=== PATIENT | female | born 1960 | race Caucasian/White ===

== ENCOUNTER → 2017-05-01 16:57 | Outpatient (CLI) | payer OTHER, SELFPAY ==
[2017-05-01 17:58] LABS: Thyroid Stim Hormone (TSH) 1.98 uIU/mL (0.358-3.74)
== END ==
PROVIDERS: Family Provider Family Medicine; PCP Family Medicine; Visit Provider Family Medicine
DX: F32.9 Major depressive disorder, single episode, unspecified (principal)
CPT/HCPCS: 36415; 84443

== ENCOUNTER → 2017-11-01 09:45 | Outpatient (CLI) | payer OTHER, SELFPAY ==
[2017-11-06 15:11] LABS: HPV Reflexed? NOT INDICATED
== END ==
PROVIDERS: Family Provider Family Medicine; PCP Family Medicine; Visit Provider Family Medicine
DX: Z01.419 Encounter for gynecological examination (general) (routine) without abnormal findings (principal)
CPT/HCPCS: 88175; G0145

== ENCOUNTER → 2017-12-30 19:45 | Outpatient (CLI) | payer OTHER, SELFPAY ==
--- NOTE | 2017-12-30 | CYSPIN_PTH ---
PATIENT: ROBIN GONZALEZ [facility] U#:[id number] AGE/SX: 64/F ROOM: RE12/30/[address]: Dr. Alexander Curran MD : 1960 BED: DIS: SPEC #: [id number] RECD: 12/31/17 10:52 STATUS: CARLOS IBETH #: [id number] ELIZABETH: 12/30/17 00:[address]: Alexander Curran DEPT: CYTOLOGY RECD BY: Jamison Pugh ENTERED: 12/31/17 10:53 SP TYPE: CYSPIN FL OTHR DR: Dr. David Phelps MD Tissues: Urine Procedures: Pap Stain (control) Special Stain Group II Cytospin Fluid HEADER OPERATION: Not noted PRE-OP DIAGNOSIS: Hematuria TISSUE SUBMITTED: Urine for cytology DIAGNOSIS CYTOLOGY Urine for cytology (cytospin): Mild atypical urothelial cells noted with degenerative changes. SJ:eusebia 01/01/18 CYTOLOGY STUDY Slides are reviewed. CYTOLOGY GROSS Received is 60 ml of light yellow clear fluid labeled with the patient's name and and designated per the requisition as urine. Submitted for cytology preparation. / 12/31/17 TC:5 CPT: 74925
[2017-12-30 19:47] LABS: Cytology, Body Fluid / CSF SEE PATHOLOGY REPORT
== END ==
PROVIDERS: Family Provider Family Medicine; PCP Family Medicine; Referring Provider Urology; Visit Provider Urology
DX: R31.9 Hematuria, unspecified (principal)
CPT/HCPCS: 88108; 88313

== ENCOUNTER → 2018-01-02 09:19 | Outpatient (CLI) | payer OTHER, SELFPAY ==
--- NOTE | 2018-01-02 09:29 | US_ITS ---
STUDY: RENAL ULTRASOUND - COMPLETE REASON FOR EXAM: Female, 57 years old. Microscopic hematuria TECHNIQUE: Ultrasound evaluation of the kidneys was performed with real-time and static العلي-scale imaging. COMPARISON: None. FINDINGS: RIGHT KIDNEY: Normal location of the right kidney, which is normal in size. The right kidney measures 10.0 x 5.4 x 4.5 cm. There is a normal cortex of the right kidney. The renal cortex measures 1.3 cm. There is no right renal mass or cyst. Nonshadowing echogenic foci may be related to vascular calcifications. There are no right renal calculi. There is no right hydronephrosis. DISTAL RIGHT URETER: There is non-visualization of the distal right ureter. There is a visualized right ureteral jet. LEFT KIDNEY: Normal location of the left kidney, which is normal in size. The left kidney measures 10.5 x 4.2 x 4.7 cm. There is a normal cortex of the left kidney. The renal cortex measures 1.6 cm. There is no left renal mass or cyst. Nonshadowing echogenic foci may be related to vascular calcifications. There are no left renal calculi. There is no left hydronephrosis. DISTAL LEFT URETER: There is non-visualization of the distal left ureter. BLADDER: The distended urinary bladder has a volume of 839 ml. The post void urinary bladder has a volume of 27 ml. There is a normal wall thickness of the distended urinary bladder. There is no demonstrated mass within the urinary bladder. There are no demonstrated bladder calculi. US/Kidney and Bladder IMPRESSION: Nonechogenic foci may be vascular calcifications of the kidneys. Post void residual in the urinary bladder. Electronically Signed: Mike Brownlee DO at 23:58 EDT Tel [phone], Service support ,
== END ==
PROVIDERS: Family Provider Family Medicine; PCP Family Medicine; Referring Provider Urology; Visit Provider Urology
DX: R31.29 Other microscopic hematuria (principal)
CPT/HCPCS: 76770

== ENCOUNTER → 2018-06-16 | Outpatient (CLI) | payer OTHER, SELFPAY ==
[2017-11-29 11:29] VITALS: BMI 24.5
--- NOTE | 2018-06-16 17:01 | RAD_ITS ---
STUDY: X-RAY LEFT FOOT, GREAT TOE REASON FOR EXAM: Female, 57 years old. Pain and swelling TECHNIQUE: 3 view(s) of the toe were obtained. COMPARISON: None. FINDINGS: Normal visualized metatarsus. Normal metatarsophalangeal (M.T.P) joint. Normal interphalangeal joints. Normal phalanges and interphalangeal joints. The soft tissue structures are unremarkable. RAD/Toe(s) Min 2 Views IMPRESSION: Normal x-ray of the toe. Electronically Signed: Derick Werner MD at 19:19 EDT , Service support ,
== END | disposition home or self-care (01) ==
LOC: MTRAD 16:59
PROVIDERS: Family Provider Family Medicine; PCP Family Medicine; Referring Provider Family Medicine; Visit Provider Family Medicine
DX: S99.922A Unspecified injury of left foot, initial encounter (principal)
CPT/HCPCS: 73660

== ENCOUNTER → 2018-06-17 | Outpatient (CLI) | payer OTHER, SELFPAY ==
[2017-11-29 11:29] VITALS: BMI 24.5
--- NOTE | 2018-06-17 15:30 | RAD_ITS ---
STUDY: X-RAY - LEFT HAND REASON FOR EXAM: Female, 57 years old. Dorsal swelling TECHNIQUE: 3 view(s) of the hand. COMPARISON: None. FINDINGS: Normal radiocarpal articulation. Normal distal radioulnar joint. Normal visualized carpal bones. Normal carpal articulations Normal carpometacarpal articulation of the thumb. Normal second through fifth carpometacarpal joints. Normal metacarpi. Normal metacarpophalangeal joint of the thumb. Normal interphalangeal joint of the thumb. Normal proximal and distal phalanges of the thumb. Normal metacarpophalangeal joints of the second through fifth fingers. Normal proximal and distal interphalangeal joints of the second through fifth fingers. Normal phalanges of the second through fifth fingers. Soft tissue swelling over the dorsum of the metacarpals RAD/Hand Min 3 Views IMPRESSION: No demonstrated fracture or suspicious osseous lesion Dorsal soft tissue swelling Electronically Signed: Derick Werner MD at 17:25 EDT , Service support ,
== END | disposition home or self-care (01) ==
LOC: MTRAD 15:29
PROVIDERS: Family Provider Family Medicine; PCP Family Medicine; Referring Provider Family Medicine; Visit Provider Family Medicine
DX: S69.92XA Unspecified injury of left wrist, hand and finger(s), initial encounter (principal)
CPT/HCPCS: 73130

== ENCOUNTER → 2018-11-12 | Outpatient (CLI) | payer OTHER, SELFPAY ==
[2017-11-29 11:29] VITALS: BMI 24.5
[2018-11-12 11:28] LABS: Anion Gap 4 (5-15); BUN 10 mg/dL (7-18); BUN/Creat Ratio 13.6 RATIO (10-20); Chloride 107 mmol/L (98-107); Cholesterol 235 mg/dL (200); Creatinine, Serum 0.74 mg/dL (0.55-1.02); EST Glomerular Filtration Rate 87 mL/min (>60); Est Glom Filt Rate - Afr Amer 105 mL/min (>60); Glucose 80 mg/dL (74-106); High Density Lipoprotein 110 mg/dL; Phenytoin (Dilantin) Level 11.6 mL (10.0-20.0); Potassium 3.8 mmol/L (3.5-5.1); Sodium Level 142 mmol/L (136-145); Triglycerides 76 mg/dL; Very Low Density Lipoprotein 15 mg/dL (5-40)
[2018-11-12 11:34] LABS: Vitamin D,25 Hydroxy 27.4 ng/mL (29.95-100.01)
== END | disposition home or self-care (01) ==
LOC: LAB 09:44
PROVIDERS: Family Provider Family Medicine; PCP Family Medicine; Referring Provider Family Medicine; Visit Provider Family Medicine
DX: Z00.00 Encounter for general adult medical examination without abnormal findings (principal); G40.909 Epilepsy, unspecified, not intractable, without status epilepticus
CPT/HCPCS: 36415; 80048; 80061; 80185; 82306

== ENCOUNTER → 2019-11-24 | Outpatient (CLI) | payer OTHER, SELFPAY ==
[2017-11-29 11:29] VITALS: BMI 24.5
[2019-11-24 12:37] LABS: Phenytoin (Dilantin) Level 11.6 mL (10.0-20.0)
== END | disposition home or self-care (01) ==
LOC: MFPLAB 10:45
PROVIDERS: PCP Family Medicine; Referring Provider Family Medicine; Visit Provider Registered Nurse
DX: Z00.00 Encounter for general adult medical examination without abnormal findings (principal)
CPT/HCPCS: 36415; 80185

== ENCOUNTER 2020-03-30 15:27 | Emergency (ER) | payer OTHER, SELFPAY ==
[2020-03-30 15:28] VITALS: BP 124/73; PULSE 97; RESP 18; TEMP 36.8; O2SAT 99; BMI 24.3
--- NOTE | 2020-03-30 16:10 | ED.VIS.GEN ---
History of Present Illness Chief Complaint: Seizure Informant: Patient Narrative: Patient is a 59-year-old female who presents to the emergency department for seizures. She does have a history of seizure disorder and is on Dilantin. She did miss a dose last night. She did take her dose this morning. She did get her second dose of the Moderna vaccine yesterday. She did fine with her initial dose few weeks prior. Nuys any recent illnesses. She does have a mild headache and some nausea now but this is typical post seizure for her. Her last seizure was over 9 years ago. She denies any injury except she did bite her bottom lip. No active bleeding. She denies any fevers or chills. No weakness or loss of sensation in any extremity. No urinary symptoms. Past Medical History - Allergies and Home Meds Allergies/Adverse Reactions: Allergies No Known Allergies Allergy (Verified 11/29/17 11:31) Primary Care Physician: David Phelps MD [Primary Care Provider] - 3-5 Days Prior records reviewed: Yes Past Medical History: - - Seizure disorder Smoking Status: Never smoker Review of Systems All systems negative except as indicated General: Denies: Chills, Fever, Sweats Eyes: Denies: Visual changes - bilaterally, Diplopia ENT: Denies: Rhinorrhea, Sore throat Cardiovascular: Denies: Chest pain, Palpitations Respiratory: Denies: Dyspnea, Cough, Dyspnea on exertion Gastrointestinal: Reports: Nausea. Denies: Abdominal pain, Vomiting, Diarrhea Genitourinary: Denies: Dysuria, Hematuria, Frequency Musculoskeletal: Denies: Back pain, Extremity Pain Skin: Denies: Rash, Wounds Neurological: Reports: Headache. Denies: Weakness, Numbness Physical Exam Vital Signs/Narrative: Vital Signs Temp Pulse Resp BP Pulse Ox 03/30/20 15:28 98.3 F 97 18 124/73 H 99 Inital Vital Signs reviewed: Yes General: Well nourished, Well developed, No Acute Distress Head: Normocephalic, Atraumatic Eyes: Perrl, EOMI ENT: Moist mucous membranes, No rhinorrhea, - - Mild swelling to lower lip. Neck: Supple, Nontender Cardiovascular: Regular rate, Regular rhythm, No murmurs Respiratory: No distress, CTA bilaterally, Chest nontender Abdomen: Soft, Nontender, Nondistended, Normal bowel sounds Back: Nontender, Normal Inspection. Negative for: Spinal tenderness Extremities: Nontender, No edema Skin: Normal color, No rash Neurological: Alert, Oriented x3, Cranial nerves II-XII grossly intact, Normal Strength, Normal Sensation Psychological: Normal affect, Normal Mood Diagnostic/Tx/Re-eval - Medical Decision Making Patient presents to the emergency department for seizures. She is not sure how long each one lasted for and it was witnessed by her . She did miss her dose of antiepileptic medication yesterday but did take it today. We will check basic lab work at this time and monitor for repeat seizure activity. Patient's lab work did not reveal any significant acute abnormality. She was given a second oral dose of her seizure medication. She not have any repeat seizure activity and will be discharged home at this time. She is to follow-up with her PCP. Return precautions are reviewed. She is agreeable with this plan. All questions were answered. ED Disposition - Plan for ED Patient: Disposition: Home or Assisted Living Diagnosis: Seizure Instructions: ED Seizure, Recurrent (Adult) Referrals: David Phelps MD [Primary Care Provider] - 3-5 Days
[2020-03-30 16:12] LABS: Absolute Lymphocyte Count 0.46 X10^3/uL (0.83-4.51); Absolute Neutrophil Count 4.6 X10^3/uL (2.0-7.7); Basophil# 0.01 X10^3/uL; Basophil% 0.2 % (0-1); Hematocrit 40.6 % (37-47); Hemoglobin 13.6 g/dL (12.0-15.0); Lymphocyte # 0.46 X10^3/ul (4.0); Lymphocyte % 8.3 % (19-41); Mean Corp Hgb Conc 33.5 g/dL (32-36); Mean Corpuscular Hgb 32.3 pg (27.0-32.0); Mean Corpuscular Volume 96.4 fL (81-99); Monocyte% 7.3 % (0-10); NRBC Flagged by Analyzer 0 % (0-5); Neutrophil # 4.61 X10^3/uL (2.7-7.7); Neutrophil % 83.7 % (47-70); POSITIVE DIFFERENTIAL YES; Platelet Count 220 K/mm3 (150-450); RBC Distribution Width CV 11.9 % (11.6-14.6); RBC Distribution Width SD 42.1 fl (35.1-43.9); Red Blood Count 4.21 M/mm3 (4.2-5.4); White Blood Count 5.5 K/mm3 (4.4-11.0)
[2020-03-30 16:23] LABS: Differential Indicated SCAN CRITERIA MET
[2020-03-30 16:24] LABS: Anion Gap 8 (5-15); BUN 15 mg/dL (7-18); BUN/Creat Ratio 18.6 RATIO (10-20); Calcium,Total 8.7 mg/dL (8.5-10.1); Chloride 102 mmol/L (98-107); EST Glomerular Filtration Rate 78 mL/min (>60); Est Glom Filt Rate - Afr Amer 94 mL/min (>60); Estimated Creatinine Clearance 61.36 ml/min; Glucose 138 mg/dL (74-106); Potassium 3.4 mmol/L (3.5-5.1); Sodium Level 135 mmol/L (136-145)
[2020-03-30] MEDS: Phenytoin Na 100 MG Capsule 200 MG PO (16:36)
[2020-03-30] MEDS: Acetaminophen 325 MG Tablet 650 MG PO (16:37)
[2020-03-30 16:39] VITALS: BP 124/70; PULSE 95; RESP 18
[2020-03-30 16:53] LABS: Differential Comment SCANNED
[2020-03-30 18:00] VITALS: BP 113/71; PULSE 90; RESP 16; O2SAT 98
== END 2020-03-30 18:08 | disposition home or self-care (01) ==
PROVIDERS: Emergency Provider Emergency Medicine; PCP Family Medicine
DX: G40.909 Epilepsy, unspecified, not intractable, without status epilepticus (principal); Z79.899 Other long term (current) drug therapy
CPT/HCPCS: 80048; 85025; 99285; A4216

== ENCOUNTER 2020-03-30 20:15 | Inpatient (IN) | payer OTHER, SELFPAY ==
[2020-03-30 15:28] VITALS: BMI 24.3
[2020-03-30 20:17] VITALS: BP 123/71; PULSE 93; RESP 17; TEMP 36.7; O2SAT 97; BMI 24.7
--- NOTE | 2020-03-30 20:52 | CT_ITS ---
STUDY: CT BRAIN WITHOUT CONTRAST REASON FOR EXAM: Female, 59 years old. SEIZURES. PT RECEIVED 2ND COVID VACCINE TODAY. NAUSEA/VOMITING, KIMBLE. RADIATION DOSAGE (If Supplied By Facility): CTDIvol = ( 44.99 ) mGy, DLP = ( 745.49 ) mGycm TECHNIQUE: Transaxial CT imaging of the brain was performed without administration of intravenous contrast material. Individualized dose optimization techniques were used for this CT. COMPARISON: None. FINDINGS: Normal soft tissue structures. Normal calvarium. Normal size ventricles and extra-axial spaces for the patient''s age. Normal white matter tracts of the cerebral hemispheres. Normal basal ganglia and thalami. Normal brainstem. Normal cerebellum. No hydrocephalus is seen. No focal parenchymal edema. There is no intracranial hemorrhage. There are no findings of an acute ischemic infarction. Normal visualized paranasal sinuses. CT/Brain/Head without Contrast IMPRESSION: Negative unenhanced CT scan of the brain. Electronically Signed: Randy Martinez MD at 21:29 EST , Service support ,
[2020-03-30 21:16] VITALS: BP 121/71; PULSE 89; RESP 17; O2SAT 96
[2020-03-30 21:25] LABS: Phenytoin (Dilantin) Level 12.1 mL (10.0-20.0)
--- NOTE | 2020-03-30 21:36 | TELEMED_ITS ---
[facility] Telemed has confirmed receipt of a request for visit. This document confirms receipt of the order initiating the consult. To find the results of the consultation, please view the patient's reports for the scanned Telemed Consult.
--- NOTE | 2020-03-30 21:49 | ED.VIS.GEN ---
History of Present Illness Chief Complaint: Seizure Narrative: Patient is a 59-year-old female who presents to the emerge department for seizures. She was seen in the emergency department by myself earlier today for similar complaint. This would be her fourth seizure today. Each lasted less than a minute long. She did miss a dose of Dilantin yesterday but did take her dose earlier today and was given a second dose here in the ED. She did receive her second moderna vaccination yesterday as well. She is complaining of just a mild headache at this time but no other complaints. She did bite her lip the earlier seizure but no repeat bites or injury with this episode. She denies any recent illness. No fevers or chills. No cough, cold, congestion. No nausea/vomiting. No diarrhea. No urinary symptoms. She denies any head trauma. Past Medical History - Allergies and Home Meds Allergies/Adverse Reactions: Allergies No Known Allergies Allergy (Verified 03/30/20 20:26) Prior records reviewed: Yes Past Medical History: - - Seizure disorder Smoking Status: Never smoker Review of Systems All systems negative except as indicated General: Denies: Chills, Fever, Sweats Eyes: Denies: Visual changes - bilaterally, Diplopia ENT: Denies: Rhinorrhea, Sore throat Cardiovascular: Denies: Chest pain, Palpitations Respiratory: Denies: Dyspnea, Cough, Dyspnea on exertion Gastrointestinal: Denies: Abdominal pain, Nausea, Vomiting, Diarrhea Genitourinary: Denies: Dysuria, Hematuria, Frequency Musculoskeletal: Denies: Back pain, Extremity Pain Skin: Denies: Rash, Wounds Neurological: Reports: Headache. Denies: Weakness, Numbness Physical Exam Vital Signs/Narrative: Vital Signs Temp Pulse Resp BP Pulse Ox 03/30/20 21:16 89 17 121/71 H 96 03/30/20 20:17 98.1 F 93 17 123/71 H 97 Inital Vital Signs reviewed: Yes General: Well nourished, Well developed, No Acute Distress Head: Normocephalic, Atraumatic Eyes: Perrl, EOMI ENT: Moist mucous membranes, No rhinorrhea, - - Mild swelling to lower lip Neck: Supple, Nontender Cardiovascular: Regular rate, Regular rhythm, No murmurs Respiratory: No distress, CTA bilaterally, Chest nontender Abdomen: Soft, Nontender, Nondistended, Normal bowel sounds Back: Nontender, Normal Inspection Extremities: Nontender, No edema Skin: Normal color, No rash Neurological: Alert, Oriented x3, Cranial nerves II-XII grossly intact, Normal Strength, Normal Sensation Psychological: Normal affect, Normal Mood Diagnostic/Tx/Re-eval - Medical Decision Making Patient presents to the emergency department for fourth seizure today. Lab work was just performed. Dilantin level obtained which was within normal limits. CT scan of the head did not show any acute intracranial abnormalities. She has no focal neurological deficits on exam. Will consult neurology for input at this time. CT scan of her head did not show any acute intracranial abnormality. Dilantin level within normal limits. Teleneurology did evaluate her at bedside. At this time I do want her to be observed overnight to make sure she does not have any more breakthrough seizures. They do not recommend treating with any other medications at this time and will only use as needed Ativan. She continues to have seizures she will require EEG and further evaluation. Patient is agreeable with this plan. She otherwise has been stable throughout ED without any repeat seizures. ED Disposition - Plan for ED Patient: Disposition: Acute Care Hospital [facility] Diagnosis: Breakthrough seizure
[2020-03-30 21:58] VITALS: BP 120/70; PULSE 86; RESP 18; O2SAT 97
[2020-03-30 23:00] VITALS: BP 121/71; PULSE 83; RESP 16; O2SAT 98
--- NOTE | 2020-03-30 23:22 | PCM.HP.STD ---
Problem List (1) Breakthrough seizure Status: Acute (2) Anxiety and depression Status: Acute History of Present Illness Date of Admission: 03/30/20 Chief Complaint: Breakthrough seizures The patient is a 59 y/o M w/ PMHx: Anxiety and Depression, Seizure disorder who presents to the [facility] ED on 03/30/20 with history of recent Moderna Vaccination #2 with several breakthrough seizures since, evaluated earlier in the day with dosing of her dilantin as she had been missing doses with only side effect vaccination noted mild headache prompting re-presentation to the ED. 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 Discussed at length need to potentially alter her in anxiety and depressive medications and initiate routine therapy sessions. Work-up in the ED included T 98.1, heart rate 93, BP 123/71, respiratory rate 17, 97% on room air, phenytoin level 12.1, recent CBC earlier in the day with WBC 5.5, hemoglobin 13.6, platelet 220 with noted mild lymphopenia, BMP with sodium 135, potassium 3.4, glucose 138, CT brain unremarkable, neurology consultation with recommendation for as needed Ativan for repeat seizures, continued Dilantin home dose with dose adjustments if any further seizure activity, continue seizure precautions, plan repeat neurology evaluation in a.m., EEG, urinalysis, urine tox screen, TSH as well as LFTs is not performed in the ED. Past Medical History Medical History: Medical History (Last Updated 11/29/17 @ 11:32 by Gilma Wilson) Back pain M54.9 Seizures R56.9 Allergies No Known Allergies Allergy (Verified 03/30/20 20:26) Home Medications: Ambulatory Orders Medication Instructions Recorded phenytoin sodium extended 100 mg 200 mg PO QHS 11/29/17 capsule sertraline 50 mg tablet 50 mg PO DAILY 11/29/17 Surgical History: Surgical History (Last Updated 11/29/17 @ 11:34 by Gilma Wilson) History of tonsillectomy Z90.89 Hx of section Z98.891 Hx of right heart catheterization Z98.890 Surgical History: - - x3, tonsillectomy. 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 Paternal Family History: Family History (Last Updated 11/29/17 @ 11:33 by Gilma Wilson) Sister Myocardial infarction Father Myocardial infarction History Items: High Cholesterol, Heart Disease, Hypertension Review of Systems Constitutional: Reports: Malaise, Weakness, Fatigue. Denies: Chills, Fever, Weight Change HEENT: Reports: - - Sore lip secondary to biting it during prior seizure.. Denies: Head Aches, Sinus Congestion, Sinus Drainage Cardiovascular: Denies: Chest Pain, Palpitations Respiratory: Denies: Cough, Shortness of breath at rest, Sputum production Gastrointestinal: Denies: Abdominal Pain, Nausea, Vomiting Genitourinary: Denies: Dysuria Musculoskeletal: Reports: Back Pain, Joint Pain, Muscle pain. Denies: Joint Tenderness Skin: Denies: Rash, Wounds Neurological: Reports: Seizures. Denies: Focal weakness, Numbness, Tingling Psychiatric: Reports: Anxiety, Depression. Denies: Homicidal Ideations, Suicidal Ideations Hematologic/ Lymphatic: Denies: Easy Bruising, Easy Bleeding VTE Information - Inpt Only VTE Present on Admission: No VTE Mechan Device Prophylaxis: SCD's VTE Pharm Prophylaxis ordered?: Yes Patient Problems: Active and Suspected Problems (Last Updated 11/29/17 @ 11:32 by Gilma Wilson) Breakthrough seizure (Acute) Subjective: Patient seated upright in the ED bed, fatigued appearing, extremely flat affect, evident swollen lip. Objective: Physical Examination: General: awake, alert, oriented x 3 and cooperative, seated upright in the ED bed in no apparent distress, significantly fatigued appearing. Skin: normal color, turgor, no icterus, cyanosis. HEENT: AT/NC, EOMI, PERRLA, dry MM, significantly swollen lower lip secondary to biting it during prior seizure, no carotid bruits or JVD noted. Lungs: CTA bilaterally, moderate effort, mild decrease BL bases, no rales, ronchi or wheezing. Heart: Regular rate and rhythm; no gallop, rub audible. Abdomen: soft, NTTP, ND, normal BS, no HSM. Extremities: no cyanosis, clubbing, or edema. Neurological: patient awake, alert, oriented as noted; cognitive function upon ED evaluation improved, near baseline, no current postictal phase upon this evaluation; pupils equally reactive to light and accomodation; cranial nerves II-XII grossly normal, moving all 4 extremities, no focal deficits, strength moderately globally decreased given significant serial seizures recently. Psychiatric: affect appears extremely flat, fatigued, evident depression and ongoing anxiety, amenable to outpatient therapy and alteration of her medications. - Physical Exam Vitals/I&O's: Vital Signs Temp Pulse Resp BP Pulse Ox 98.1 F 83 16 121/71 H 98 03/30/20 20:17 03/30/20 23:00 03/30/20 23:00 03/30/20 23:00 03/30/20 23:00 Oxygen Delivery Method Room Air Weight: 135 lb 9.349 oz Body Mass Index (BMI) 24.7 Laboratory Results 03/30/20 20:27: Phenytoin 12.1 Assessment/Plan All Active Problems (Last Updated 11/29/17 @ 11:32 by Gilma Wilson) Breakthrough seizure (Acute) Anxiety and depression (Acute) The patient is a 59 y/o M w/ PMHx: Anxiety and Depression, Seizure disorder who presents to the [facility] ED on 03/30/20 with history of recent Moderna Vaccination #2 with several breakthrough seizures since, evaluated earlier in the day with dosing of her dilantin as she had been missing doses with only side effect vaccination noted mild headache prompting re-presentation to the ED. 1. 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 consultation once EEG obtained, following PCU transition from the ED patient with recurrent significant 45-second grand mal seizure therefore will will initiate Keppra with 1000 mg load and transition to 500 mg IV twice daily as well as Dilantin 1000 mg load and continuation of 100 mg every 8 hours pending reevaluation per neurology, plan EEG, will obtain urinalysis, urine tox screen, TSH as well as LFTs, continue hydration, n.p.o. status unless clinically appropriate from postictal phase. 2. Anxiety and depression, uncontrolled: Patient with evident significant depression and anxiety, extremely flat affect with admitted ongoing depression and issues with Covid with family members. Strongly discussed possible medication change needs as well as routine outpatient counseling to which patient is amenable. 3. Recent 2nd dose Covid vaccination: Neurology is concerned some relation between breakthrough seizures and recent completion of 2nd Covid vaccination. Patient with no issues following 1st vaccination per discussions. We will continue treatment and evaluation as noted #1. Patient denies ever having had Covid previous. 4. DVT prophylaxis: SCDs, Lovenox. Inpatient E&M: 04240 Init Hosp L3
--- NOTE | 2020-03-30 23:35 | ED.RN ---
very concern about not being informed about pt care on earlier visit today. Informed that pcu will call if anything happens on the floor.
[2020-03-31] VITALS (11 sets, daily range): BP systolic 103–139; BP diastolic 52–86; PULSE 79–127; RESP 16–18; TEMP 36.2–37.2; O2SAT 97–100; BMI 23.4
--- NOTE | 2020-03-31 00:10 | ED.RN ---
ingrid charge nurse notified if any changes to
--- NOTE | 2020-03-31 00:50 | NURSING ---
Pt arrived from ed. Pt denied any complaints. Pt up to bathroom. Pt had a grand mal seizure. pt caught in this rn arms. Pt drag to bed bao jamison rn. Pt lifted into bed and placed on side. 02 at 2lnc appilied. mouth suction for scant amount.
[2020-03-31 01:08] LABS: AST(SGOT) 24 U/L (15-37); Alanine Aminotransfer ALT/SGPT 27 U/L (13-56); Albumin, Serum 3.8 g/dL (3.2-5.0); Alkaline Phosphatase 119 U/L (45-117); Bilirubin, Direct 0.06 mg/dL (0.00-0.30); Globulin 3.7 g/dL (2.2-4.2); Magnesium 2.2 mg/dL (1.6-2.6); Protein, Total 7.5 g/dL (6.4-8.2); Thyroid Stim Hormone (TSH) 0.95 uIU/mL (0.358-3.74)
[2020-03-31] MEDS: 0.9% Normal Saline 1,000 ML 100 ML IV ×3 (01:20→23:24)
[2020-03-31] MEDS: levETIRAcetam IV 1,000 MG/100 ML BAG 400 MG IV (01:20)
[2020-03-31] MEDS: Phenytoin Na 100 MG/2 ML Vial IV ×2 (05:32→14:51)
[2020-03-31 06:53] LABS: Absolute Lymphocyte Count 0.94 X10^3/uL (0.83-4.51); Absolute Neutrophil Count 4.1 X10^3/uL (2.0-7.7); Basophil# 0.01 X10^3/uL; Basophil% 0.2 % (0-1); Hematocrit 39.1 % (37-47); Hemoglobin 12.6 g/dL (12.0-15.0); Lymphocyte # 0.94 X10^3/ul (4.0); Lymphocyte % 17.2 % (19-41); Mean Corp Hgb Conc 32.2 g/dL (32-36); Mean Corpuscular Hgb 31.6 pg (27.0-32.0); Monocyte# 0.44 X10^3/uL; Monocyte% 8.1 % (0-10); NRBC Flagged by Analyzer 0 % (0-5); Neutrophil # 4.06 X10^3/uL (2.7-7.7); Neutrophil % 74.3 % (47-70); Platelet Count 189 K/mm3 (150-450); RBC Distribution Width CV 11.9 % (11.6-14.6); RBC Distribution Width SD 43.3 fl (35.1-43.9); Red Blood Count 3.99 M/mm3 (4.2-5.4); White Blood Count 5.5 K/mm3 (4.4-11.0)
[2020-03-31 07:32] LABS: AST(SGOT) 27 U/L (15-37); Alanine Aminotransfer ALT/SGPT 27 U/L (13-56); Albumin, Serum 3.7 g/dL (3.2-5.0); Alkaline Phosphatase 120 U/L (45-117); Anion Gap 6 (5-15); BUN 13 mg/dL (7-18); BUN/Creat Ratio 19.7 RATIO (10-20); Calcium,Total 8.4 mg/dL (8.5-10.1); Chloride 107 mmol/L (98-107); Creatinine, Serum 0.66 mg/dL (0.55-1.02); EST Glomerular Filtration Rate 98 mL/min (>60); Est Glom Filt Rate - Afr Amer 119 mL/min (>60); Estimated Creatinine Clearance 74.38 ml/min; Globulin 3.7 g/dL (2.2-4.2); Glucose 97 mg/dL (74-106); Potassium 3.7 mmol/L (3.5-5.1); Protein, Total 7.4 g/dL (6.4-8.2); Sodium Level 138 mmol/L (136-145)
[2020-03-31] MEDS: Acetaminophen 325 MG Tablet 650 MG PO (09:35)
[2020-03-31] MEDS: Sertraline 50 MG Tablet PO (09:36)
[2020-03-31] MEDS: Enoxaparin 40 MG/0.4 ML Syringe SC (09:36)
[2020-03-31] MEDS: Famotidine 20 MG Tablet PO ×2 (09:36→21:23)
[2020-03-31 12:00] LABS: Bacteria 0 SEEN /hpf (None Seen); Mucous, Urine 0 SEEN /hpf (<or=2+); Red Blood Cells-Urine 0 SEEN /hpf (0-5)
[2020-03-31 12:12] LABS: Amphetamine Urine VISTA NEGATIVE (<1000 ng/mL); Barbiturate Urine VISTA NEGATIVE (< 200 ng/mL); Benzodiazepine Urine VISTA NEGATIVE (< 200 ng/mL); Cocaine Urine VISTA NEGATIVE (< 300 ng/mL); Ecstacy Urine VISTA NEGATIVE (< 500 ng/mL); Methadone Urine VISTA NEGATIVE (< 300 ng/mL); PCP Urine VISTA NEGATIVE (< 25 ng/mL); THC Urine VISTA NEGATIVE (< 50 ng/mL); Vista UDS pH Range 5
--- NOTE | 2020-03-31 12:17 | CASEMGMT ---
GREG SANDERS assessment: Face to Face with patient for initial transition planning/care coordination assessment. GREG SANDERS introduced self and role at [facility], pt/ voice understanding and consent to assessment at this time. Pt is sitting up in bed in no distress at this time. Pt is A/Ox4 at this time and answers questions appropriately at this time, but pt is drowsy at times. Pt's is at bedside during assessment. Care providers, pharmacy, and demographics verified at this time. Presentation: Pt received 2nd COVID vaccine yesterday; Pt had N/V, KIMBLE, pt has had multiple seizures-hx of same, last sz was 10 years ago and only missed one dose of sz med. Admitting dx: Breakthrough seizures PCP: Mattie Specialists: Pt states no current specialists. Preferred Pharmacy: [facility] Insurance: [facility] Prescription Benefit: [facility] Living Will/HPOA: Pt states does not have LW/HPOA and pt declines AD info at this time. LNOK: Caden Moreno, ; Yesenia Lau, sister Living Arrangements: Pt states lives with in split level home and states no concerns at home at this time. Pt states is independent with ADL's. Transportation: Pt states normally drives self and states no transportation concerns at this time. DME/HHC: Pt states no current DME or need for any at this time. Pt states no hx of HHC or SNF in the past. Pt states no concerns with going home at time of discharge. Pt states works [employer]. Pt states does not smoke cigarettes or drink ETOH. Pt voices no further concerns/needs at this time. CM to follow for any further discharge planning/needs. Advised pt to ask for CM if any further questions/concerns/needs arise, voices understanding. Pt Goal: Home Plan[place] GREG SANDERS
[2020-03-31 12:18] LABS: Color, Urine Yellow (Yellow); Glucose, Dipstick Normal (Normal); Ketone-Dipstick 5 mg/dl (Negative); Leukocyte Esterase-Dipstick 100 /ul (Negative); Nitrite-Dipstick Negative (Negative); Occult Blood-Urine 250 /ul (Negative); Protein-Dipstick 15 mg/dl (Negative); Urine Bilirubin Dipstick Negative (Negative); Urine Clarity Clear (Clear); Urine Urobilinogen Normal (Normal)
[2020-03-31 12:35] LABS: Squamous Epithelial Cells - UA 5-10 SEEN /hpf (5-10); White Blood Cells 0-5 SEEN /hpf (0-5)
--- NOTE | 2020-03-31 13:36 | PN_ITS ---
<BogdanKaruna CASINO INVESTIGATOR - Last Filed: 03/31/20 13:51> Patient Problems: Active and Suspected Problems (Last Updated 11/29/17 @ 11:32 by Gilma che) Breakthrough seizure (Acute) Anxiety and depression (Acute) Subjective: Patient denies further seizure activity since admission. at bedside states patient had 5 grand mal seizures day of admission. He states patient has not had seizure in at least 10 years. Has been requesting additional neurology consult, SOC consult placed. EEG abnormal. - Physical Exam Vitals/I&O's: Vital Signs Temp Pulse Resp BP Pulse Ox 99.0 F 91 18 111/52 L 100 03/31/20 09:55 03/31/20 11:00 03/31/20 09:55 03/31/20 09:55 03/31/20 09:55 Oxygen Flow Rate (L/min) 2 Oxygen Delivery Method Room Air Weight: 125 lb 14.143 oz Body Mass Index (BMI) 23.4 Intake and Output for Last 24 Hours 03/29/20 03/30/20 03/31/20 23:59 23:59 23:59 Intake Total 445 / 445 Output Total 700 / 700 Balance -255 / -255 General: Alert, Oriented x3, Cooperative HEENT: Atraumatic, PERRLA, EOMI, Normocephalic Neck: Supple, No JVD, Negative Carotid Bruits Lungs: Clear to auscultation, Normal air movement Cardiovascular: Regular rate, No murmurs Abdomen: Bowel Sounds Present, Soft, Non Tender Extremities: No clubbing, No cyanosis, No edema, Capillary Refill Less than 3 Seconds Skin: No rashes, No breakdown Musculoskeletal: No Tenderness to Palpation of Joints or Extremities Neurological: Cranial nerves II-XII grossly intact, Neuro grossly intact Psych/Mental Status: Normal Affect, Appropriate Laboratory Results 03/30/20 20:27: Phenytoin 12.1 03/30/20 20:27: Magnesium 2.2, Total Bilirubin 0.20, Direct Bilirubin 0.06, AST 24, ALT 27, Alkaline Phosphatase 119 H, Total Protein 7.5, Albumin 3.8, Globulin 3.7, TSH 0.95 03/31/20 06:10: WBC 5.5, RBC 3.99 L, Hgb 12.6, Hct 39.1, MCV 98.0, MCH 31.6, MCHC 32.2, RDW Std Deviation 43.3, RDW Coeff of Gordy 11.9, Plt Count 189, MPV 9.0, Immature Gran % (Auto) 0.200, Neut % (Auto) 74.3 H, Lymph % (Auto) 17.2 L, [place] % (Auto) 8.1, Eos % (Auto) 0.0, Baso % (Auto) 0.2, Absolute Neuts (auto) 4.1, Absolute Lymphs (auto) 0.94, Nucleated RBC % 0 03/31/20 06:10: Sodium 138, Potassium 3.7, Chloride 107, Carbon Dioxide 25.0, Anion Gap 6, BUN 13, Creatinine 0.66, Estim Creat Clear Calc 74.38, Est GFR (MDRD) Af Amer 119, Est GFR (MDRD) Non-Af 98, BUN/Creatinine Ratio 19.7, Glucose 97, Calcium 8.4 L, Total Bilirubin 0.30, AST 27, ALT 27, Alkaline Phosphatase 120 H, Total Protein 7.4, Albumin 3.7, Globulin 3.7, Albumin/Globulin Ratio 1.0 03/31/20 11:50: Urine Opiates Screen NEGATIVE, Urine Methadone Screen NEGATIVE, Ur Barbiturates Screen NEGATIVE, Ur Phencyclidine Scrn NEGATIVE, Ur Amphetamines Screen NEGATIVE, U Methamphetamin-MDMA NEGATIVE, U Benzodiazepines Scrn NEGATIVE, Urine Cocaine Screen NEGATIVE, U Cannabinoids Screen NEGATIVE, Ur Drug Screen Comment 03/31/20 11:50: Urine Color Yellow, Urine Clarity Clear, Urine pH 5.0, Ur Specific [place] 1.020, Urine Protein 15 H, Urine Glucose (UA) Normal, Urine Ketones 5 H, Urine Occult Blood 250 H, Urine Nitrite Negative, Urine Bilirubin Negative, Urine Urobilinogen Normal, Ur Leukocyte Esterase 100 H, Urine RBC 0 SEEN, Urine WBC 0-5 SEEN, Ur Squamous Epith Cells 5-10 SEEN, Urine Bacteria 0 SEEN, Urine Mucus 0 SEEN Current Medications Acetaminophen (Acetaminophen 325 Mg Tablet) 650 mg PO Q6H PRN PRN PRN Reason: Pain Score 1-10/Temp > 100.7 F Last Admin: 03/31/20 09:35 Dose: 650 mg Documented by: Al Hydroxide/Mg Hydroxide (Mag Hydrox/Al Hydrox/Simeth 30 Ml Udc) 30 ml PO Q6H PRN PRN PRN Reason: Gastric Burning Albuterol Sulfate (Albuterol 2.5 Mg/3 Ml Vial.Neb.) 2.5 mg INHALATION Q2H PRN PRN PRN Reason: Dyspnea, wheezing Enoxaparin Sodium (Enoxaparin 40 Mg/0.4 Ml Syringe) 40 mg SC DAILY [facility] Last Admin: 03/31/20 09:36 Dose: 40 mg Documented by: Famotidine (Famotidine 20 Mg Tablet) 20 mg PO BID [facility] Last Admin: 03/31/20 09:36 Dose: 20 mg Documented by: Guaifenesin (Guaifenesin 10 Ml Udc (200mg/10ml)) 20 ml PO Q4H PRN PRN PRN Reason: COUGH Hydralazine HCl (Hydralazine 20 Mg/Ml Vial) 10 mg IV Q4H PRN PRN PRN Reason: SBP > 160 Sodium Chloride () 1,000 mls @ 100 mls/hr IV .Q10H [facility] Last Admin: 03/31/20 01:20 Dose: 100 mls/hr Documented by: Levetiracetam 500 mg/ Sodium (Chloride) 105 mls @ 400 mls/hr IV Q12 [facility] Last Infusion: 03/31/20 10:00 Dose: Infused Documented by: Sodium Chloride () 250 mls @ 15 mls/hr IV .[id number] PRN PRN Reason: Saline Flush Sodium Chloride () 250 mls @ 15 mls/hr IV .[id number] PRN PRN Reason: Additional IVPB Infusion Lorazepam (Lorazepam 2 Mg/Ml Syringe) 2 mg IV PRN PRN PRN Reason: SEIZURES Magnesium Hydroxide (Magnesium Hydroxide 30 Ml Udc) 30 ml PO DAILY PRN PRN PRN Reason: Constipation Melatonin (Melatonin 3 Mg Tablet) 3 mg PO QHS PRN PRN PRN Reason: INSOMNIA Nitroglycerin (Nitroglycerin (Inpatient Use) 0.4 Mg Tab.Subl) 0.4 mg SUBLINGUAL Q5M PRN PRN Reason: CARDIAC/CHEST PAIN Nutritional Formula (Lactose Free) (Ensure Enlive 120 Ml Liquid) 120 ml PO 4X/DAY [facility] Last Admin: 03/31/20 09:41 Dose: 120 ml Documented by: Ondansetron HCl (Ondansetron 4 Mg/2 Ml Vial) 4 mg IV Q8H PRN PRN PRN Reason: NAUSEA/VOMITING Phenytoin Sodium (Phenytoin Na 100 Mg/2 Ml Vial) 100 mg IV Q8 [facility] Last Admin: 03/31/20 05:32 Dose: 100 mg Documented by: Prochlorperazine Edisylate (Prochlorperazine 10 Mg/2 Ml Vial) 5 mg IV Q4H PRN PRN PRN Reason: Breakthrough Nausea/Vomiting Psyllium Hydrophilic Mucilloid (Psyllium 1 Packet) 1 packet PO DAILY PRN PRN PRN Reason: Constipation Senna/Docusate Sodium (Senna/Docusate Sodium 1 Tablet) 2 tablet PO BID PRN PRN PRN Reason: Constipation Sertraline HCl (Sertraline 50 Mg Tablet) 50 mg PO DAILY [facility] Last Admin: 03/31/20 09:36 Dose: 50 mg Documented by: Sodium Chloride (0.9% Saline Lock 10 Ml Syringe) 10 - 40 ml IV UD PRN PRN Reason: SALINE FLUSH Throat Lozenges (Benzocaine/Menthol 1 Lozenge) 1 lozenge MUCOUS MEM Q2H PRN PRN PRN Reason: SORE THROAT Medical Necessity - Tobacco Use Smoking Status: Never smoker Tobacco Use: Non-smoker Assessment/Plan All Active Problems (Last Updated 11/29/17 @ 11:32 by Gilma Wilson) Breakthrough seizure (Acute) Anxiety and depression (Acute) 1. Breakthrough seizures-on IV Keppra and IV Dilantin. As needed Ativan. EEG abnormal. Repeat SOC neurology consult ordered. Will await further recommendations. Dilantin level 12.1. 2. Anxiety, depression-on sertraline. Recommend outpatient follow-up. 3. Recent second Covid vaccination-03/29/20. Unclear if any significance related to breakthrough seizures? DVT prophylaxis-Lovenox This patient was seen by JOHNY Godoy under the supervision of Dr. France. <Anibal France - Last Filed: 03/31/20 15:29> Subjective: Patient was seen and examined in the morning. Patient had about 5 grand mal seizure at home and about 3 after admission. Usually seizure lasted for about less than 1 minute. Patient loaded with Dilantin and Keppra. Patient missed doses of Dilantin, reason unclear probably fear from side effect of COVID-19 [place] vaccination In the morning, patient feels mild heaviness in the head and mild frontal headache. Physical exam General: Pale looking. Awake, Oriented x3, Cooperative HEENT: Atraumatic, PERRLA, EOMI, Normocephalic Oral: No Gingival or Mucosal Lesions/ Ulcerations Neck: Supple, No JVD, Negative Carotid Bruits Lungs: Air entry diminished in bilateral lung bases. No crepitation/rhonchi Cardiovascular: Regular rate, Regular Rhythm, Normal S1, Normal S2, No murmurs Abdomen: Bowel Sounds Present, Soft, Non Tender, Non-Distended : No renal angle tenderness. No suprapubic tenderness. Extremities: No edema, Capillary Refill Less than 3 Seconds Skin: No rashes, No breakdown Musculoskeletal: No Tenderness to Palpation of Joints or Extremities Neurological: No focal neurological deficit. No hypotonia/muscle rigidity. Cranial nerves II-XII grossly intact, Deep Tendon Reflexes 2+/4. Psych/Mental Status: Normal Affect, Appropriate. - Physical Exam Vitals/I&O's: Vital Signs Temp Pulse Resp BP Pulse Ox 99.0 F 91 18 111/52 L 100 03/31/20 09:55 03/31/20 11:00 03/31/20 09:55 03/31/20 09:55 03/31/20 09:55 Oxygen Flow Rate (L/min) 2 Oxygen Delivery Method Room Air Weight: 125 lb 14.143 oz Body Mass Index (BMI) 23.4 Intake and Output for Last 24 Hours 03/29/20 03/30/20 03/31/20 23:59 23:59 23:59 Intake Total 1445 / 1445 Output Total 700 / 700 Balance 745 / 745 Laboratory Results 03/30/20 20:27: Phenytoin 12.1 03/30/20 20:27: Magnesium 2.2, Total Bilirubin 0.20, Direct Bilirubin 0.06, AST 24, ALT 27, Alkaline Phosphatase 119 H, Total Protein 7.5, Albumin 3.8, Globulin 3.7, TSH 0.95 03/31/20 06:10: WBC 5.5, RBC 3.99 L, Hgb 12.6, Hct 39.1, MCV 98.0, MCH 31.6, MCHC 32.2, RDW Std Deviation 43.3, RDW Coeff of Gordy 11.9, Plt Count 189, MPV 9.0, Immature Gran % (Auto) 0.200, Neut % (Auto) 74.3 H, Lymph % (Auto) 17.2 L, [place] % (Auto) 8.1, Eos % (Auto) 0.0, Baso % (Auto) 0.2, Absolute Neuts (auto) 4.1, Absolute Lymphs (auto) 0.94, Nucleated RBC % 0 03/31/20 06:10: Sodium 138, Potassium 3.7, Chloride 107, Carbon Dioxide 25.0, Anion Gap 6, BUN 13, Creatinine 0.66, Estim Creat Clear Calc 74.38, Est GFR (MDRD) Af Amer 119, Est GFR (MDRD) Non-Af 98, BUN/Creatinine Ratio 19.7, Glucose 97, Calcium 8.4 L, Total Bilirubin 0.30, AST 27, ALT 27, Alkaline Phosphatase 120 H, Total Protein 7.4, Albumin 3.7, Globulin 3.7, Albumin/Globulin Ratio 1.0 03/31/20 11:50: Urine Opiates Screen NEGATIVE, Urine Methadone Screen NEGATIVE, Ur Barbiturates Screen NEGATIVE, Ur Phencyclidine Scrn NEGATIVE, Ur Amphetamines Screen NEGATIVE, U Methamphetamin-MDMA NEGATIVE, U Benzodiazepines Scrn NEGATIVE, Urine Cocaine Screen NEGATIVE, U Cannabinoids Screen NEGATIVE, Ur Drug Screen Comment 03/31/20 11:50: Urine Color Yellow, Urine Clarity Clear, Urine pH 5.0, Ur Specific [place] 1.020, Urine Protein 15 H, Urine Glucose (UA) Normal, Urine Ketones 5 H, Urine Occult Blood 250 H, Urine Nitrite Negative, Urine Bilirubin Negative, Urine Urobilinogen Normal, Ur Leukocyte Esterase 100 H, Urine RBC 0 SEEN, Urine WBC 0-5 SEEN, Ur Squamous Epith Cells 5-10 SEEN, Urine Bacteria 0 SEEN, Urine Mucus 0 SEEN Current Medications Acetaminophen (Acetaminophen 325 Mg Tablet) 650 mg PO Q6H PRN PRN PRN Reason: Pain Score 1-10/Temp > 100.7 F Last Admin: 03/31/20 09:35 Dose: 650 mg Documented by: Al Hydroxide/Mg Hydroxide (Mag Hydrox/Al Hydrox/Simeth 30 Ml Udc) 30 ml PO Q6H PRN PRN PRN Reason: Gastric Burning Albuterol Sulfate (Albuterol 2.5 Mg/3 Ml Vial.Neb.) 2.5 mg INHALATION Q2H PRN PRN PRN Reason: Dyspnea, wheezing Enoxaparin Sodium (Enoxaparin 40 Mg/0.4 Ml Syringe) 40 mg SC DAILY [facility] Last Admin: 03/31/20 09:36 Dose: 40 mg Documented by: Famotidine (Famotidine 20 Mg Tablet) 20 mg PO BID [facility] Last Admin: 03/31/20 09:36 Dose: 20 mg Documented by: Guaifenesin (Guaifenesin 10 Ml Udc (200mg/10ml)) 20 ml PO Q4H PRN PRN PRN Reason: COUGH Hydralazine HCl (Hydralazine 20 Mg/Ml Vial) 10 mg IV Q4H PRN PRN PRN Reason: SBP > 160 Sodium Chloride () 1,000 mls @ 100 mls/hr IV .Q10H [facility] Last Admin: 03/31/20 14:51 Dose: 100 mls/hr Documented by: Levetiracetam 500 mg/ Sodium (Chloride) 105 mls @ 400 mls/hr IV Q12 [facility] Last Infusion: 03/31/20 10:00 Dose: Infused Documented by: Sodium Chloride () 250 mls @ 15 mls/hr IV .[id number] PRN PRN Reason: Saline Flush Sodium Chloride () 250 mls @ 15 mls/hr IV .[id number] PRN PRN Reason: Additional IVPB Infusion Lorazepam (Lorazepam 2 Mg/Ml Syringe) 2 mg IV PRN PRN PRN Reason: SEIZURES Magnesium Hydroxide (Magnesium Hydroxide 30 Ml Udc) 30 ml PO DAILY PRN PRN PRN Reason: Constipation Melatonin (Melatonin 3 Mg Tablet) 3 mg PO QHS PRN PRN PRN Reason: INSOMNIA Nitroglycerin (Nitroglycerin (Inpatient Use) 0.4 Mg Tab.Subl) 0.4 mg SUBLINGUAL Q5M PRN PRN Reason: CARDIAC/CHEST PAIN Nutritional Formula (Lactose Free) (Ensure Enlive 120 Ml Liquid) 120 ml PO 4X/DAY [facility] Last Admin: 03/31/20 14:51 Dose: Not Given Documented by: Ondansetron HCl (Ondansetron 4 Mg/2 Ml Vial) 4 mg IV Q8H PRN PRN PRN Reason: NAUSEA/VOMITING Phenytoin Sodium (Phenytoin Na 100 Mg/2 Ml Vial) 100 mg IV Q8 [facility] Last Admin: 03/31/20 14:51 Dose: 100 mg Documented by: Prochlorperazine Edisylate (Prochlorperazine 10 Mg/2 Ml Vial) 5 mg IV Q4H PRN PRN PRN Reason: Breakthrough Nausea/Vomiting Psyllium Hydrophilic Mucilloid (Psyllium 1 Packet) 1 packet PO DAILY PRN PRN PRN Reason: Constipation Senna/Docusate Sodium (Senna/Docusate Sodium 1 Tablet) 2 tablet PO BID PRN PRN PRN Reason: Constipation Sertraline HCl (Sertraline 50 Mg Tablet) 50 mg PO DAILY [facility] Last Admin: 03/31/20 09:36 Dose: 50 mg Documented by: Sodium Chloride (0.9% Saline Lock 10 Ml Syringe) 10 - 40 ml IV UD PRN PRN Reason: SALINE FLUSH Throat Lozenges (Benzocaine/Menthol 1 Lozenge) 1 lozenge MUCOUS MEM Q2H PRN PRN PRN Reason: SORE THROAT Assessment/Plan This patient was seen in conjunction with CASINO INVESTIGATORKaruna. I have independently interviewed and examined the patient and reviewed pertinent history, examination findings, laboratory and plan of management. I have reviewed the note and agree with the documented findings with the few additional points. In brief, patient is a 59-year-old female with history of primary generalized epilepsy was admitted with breakthrough generalized tonic-clonic seizure about 8 episodes. Patient was empirically loaded with phenytoin sodium and Keppra at the time of admission. EEG was done and reported generalized spike and polyspike discharges indicating a potentially cryptogenic activity consistent with primary generalized epilepsy. Patient feels weak but awake and alert. SOC neurology consult requested. Labs reviewed. Magnesium 2.2. TSH 0.95. Phenytoin 12.1 in normal range. UA negative for pyuria, LE 100. Patient denies dysuria. Patient also has anxiety and depression on sertraline. I have discussed my assessment with Karuna MARROQUIN and orders have been reviewed. Inpatient E&M: [id number] [facility] L[facility]
--- NOTE | 2020-03-31 14:00 | NURSING ---
osu neurologist on and in room for consult
[2020-03-31 19:01] LABS: Phenytoin (Dilantin) Level 29.9 mL (10.0-20.0)
[2020-03-31] MEDS: Phenytoin Na 100 MG Capsule 200 MG PO (21:22)
[2020-04-01 03:00] VITALS: PULSE 78
[2020-04-01 03:55] VITALS: BP 118/63; PULSE 98; RESP 16; TEMP 37; O2SAT 98
[2020-04-01 07:01] VITALS: PULSE 82
--- NOTE | 2020-04-01 07:34 | PCS.PANDOC ---
PANDEMIC DOCUMENTATION INITIATED: Date: 03/31/20 Time: 004
[2020-04-01 09:11] VITALS: BP 118/70; PULSE 94; RESP 18; TEMP 36.8; O2SAT 99
[2020-04-01] MEDS: Sertraline 50 MG Tablet PO (09:12)
[2020-04-01] MEDS: Famotidine 20 MG Tablet PO (09:12)
[2020-04-01] MEDS: Enoxaparin 40 MG/0.4 ML Syringe SC (09:12)
[2020-04-01] MEDS: 0.9% Normal Saline 1,000 ML 100 ML IV (09:49)
--- NOTE | 2020-04-01 11:56 | DCINST_ITS ---
- Discharge Diagnoses Current Active Problems: Current Active and Chronic Problems (Last Updated 11/29/17 @ 11:32 by Gilma Wilson) Breakthrough seizure (Acute) Anxiety and depression (Acute) You will use the following diet at home:: No restrictions Discharge Activity: May Not Drive Call your doctor if you observe: - - Recurrent seizure activity Additional Instructions: May not drive until cleared by PCP/neurology. Hold 04/01/20 PM dose of Dilantin. You will need repeat lab 04/02/2020. Allergies/Adverse Reactions: Allergies No Known Allergies Allergy (Verified 03/30/20 20:26) Medications to take at Discharge phenytoin sodium extended 100 mg capsule 200 mg PO QHS 11/29/17 sertraline 50 mg tablet 50 mg PO DAILY 11/29/17 Primary Care Physician: David Phelps MD [Primary Care Provider] - Please follow up with your Primary Care Physician in: 3-5 Days Test Results: Test results from this visit will be discussed in further detail at your follow- up appointment, if applicable. Please Follow Up With: Jose Bueno MD When: Neurology- Call for follow up Proposed Discharge Date: 04/01/20
--- NOTE | 2020-04-01 12:59 | DS.PCM_ITS ---
<BogdanKaruna WHITESMITH - Last Filed: 04/01/20 14:06> Discharge Date and Diagnosis - Problem List Patient Problems: Active and Suspected Problems (Last Updated 11/29/17 @ 11:32 by Gilma Wilson) Breakthrough seizure (Acute) Anxiety and depression (Acute) Date of Admission: 03/30/20 Date of Discharge: 04/01/20 - Primary Discharge Diagnosis Acute Problems: Active Problems (Last Updated 11/29/17 @ 11:32 by Gilma Wilson) 1. Breakthrough seizures 2. Anxiety, depression 3. Recent second Covid vaccination-03/29/20. Hospital Course and Treatment Imaging Results: Diagnostic Data Brain CT 03/30/20 20:52 IMPRESSION: Negative unenhanced CT scan of the brain. Electronically Signed: Randy Martinez MD at 21:29 EST , Service support , [facility] Neurology Operations: None Procedures: Electroencephalogram Summary of Care Provided: The patient is a 59 year old F admitted on 04/01/2020 due to breakthrough seizures. 1. Breakthrough seizures-EEG abnormal. [facility] neurology consulted. Neurology recommended continuing home Dilantin 200 mg p.o. nightly. Neurology suspects flurry of seizures secondary to missed Dilantin dose as well as reaction to COVID-19 vaccination. Dilantin level 27.4 at discharge. Patient strongly requesting for discharge home. Patient will hold p.m. dose of Dilantin 04/01/2020 and return for repeat lab in a.m. No driving until follow-up with PCP/neurology. Strongly encouraged establishing with neurology as outpatient for follow-up. 2. Anxiety, depression-on sertraline. Recently uncontrolled. Recommend outpatient follow-up. 3. Recent second Covid vaccination-03/29/20. Possibly related to breakthrough seizures. General: Alert, Oriented x3, Cooperative HEENT: Atraumatic, PERRLA, EOMI, Normocephalic Neck: Supple, No JVD, Negative Carotid Bruits Lungs: Clear to auscultation, Normal air movement Cardiovascular: Regular rate, No murmurs Abdomen: Bowel Sounds Present, Soft, Non Tender Extremities: No clubbing, No cyanosis, No edema, Capillary Refill Less than 3 Seconds Skin: No rashes, No breakdown Musculoskeletal: No Tenderness to Palpation of Joints or Extremities Neurological: Cranial nerves II-XII grossly intact, Neuro grossly intact Psych/Mental Status: Normal Affect, Appropriate Patient seen and examined prior to discharge. Physical assessment as noted ab ove. Patient is stable for discharge with follow up recommendations as noted above. This patient was seen by JOHNY Godoy under the supervision of Dr. France. Patient Problems: Active and Suspected Problems (Last Updated 11/29/17 @ 11:32 by Gilma Wilson) Breakthrough seizure (Acute) Anxiety and depression (Acute) - Physical Exam Vitals/I&O's: Vital Signs Temp Pulse Resp BP Pulse Ox 98.3 F 94 18 118/70 99 04/01/20 09:11 04/01/20 09:11 04/01/20 09:11 04/01/20 09:11 04/01/20 09:11 Oxygen Flow Rate (L/min) 2 Oxygen Delivery Method Room Air Weight: 133 lb 6.075 oz Body Mass Index (BMI) 23.4 Intake and Output for Last 24 Hours 03/30/20 03/31/20 04/01/20 23:59 23:59 23:59 Intake Total 2860 / 2860 1560 / 1560 Output Total 1500 / 1500 600 / 600 Balance 1360 / 1360 960 / 960 Microbiology Past 72 Hours 03/31/20 11:50 Urine, Clean Catch Urine Culture - Preliminary Culture exhibits no growth. Laboratory Results 03/31/20 15:27: Phenytoin 29.9 H 04/01/20 11:30: Phenytoin Pending Current Medications Acetaminophen (Acetaminophen 325 Mg Tablet) 650 mg PO Q6H PRN PRN PRN Reason: Pain Score 1-10/Temp > 100.7 F Last Admin: 03/31/20 09:35 Dose: 650 mg Documented by: Al Hydroxide/Mg Hydroxide (Mag Hydrox/Al Hydrox/Simeth 30 Ml Udc) 30 ml PO Q6H PRN PRN PRN Reason: Gastric Burning Albuterol Sulfate (Albuterol 2.5 Mg/3 Ml Vial.Neb.) 2.5 mg INHALATION Q2H PRN PRN PRN Reason: Dyspnea, wheezing Enoxaparin Sodium (Enoxaparin 40 Mg/0.4 Ml Syringe) 40 mg SC DAILY [facility] Last Admin: 04/01/20 09:12 Dose: 40 mg Documented by: Famotidine (Famotidine 20 Mg Tablet) 20 mg PO BID [facility] Last Admin: 04/01/20 09:12 Dose: 20 mg Documented by: Guaifenesin (Guaifenesin 10 Ml Udc (200mg/10ml)) 20 ml PO Q4H PRN PRN PRN Reason: COUGH Hydralazine HCl (Hydralazine 20 Mg/Ml Vial) 10 mg IV Q4H PRN PRN PRN Reason: SBP > 160 Sodium Chloride () 1,000 mls @ 100 mls/hr IV .Q10H [facility] Last Admin: 04/01/20 09:49 Dose: 100 mls/hr Documented by: Sodium Chloride () 250 mls @ 15 mls/hr IV .[id number] PRN PRN Reason: Saline Flush Sodium Chloride () 250 mls @ 15 mls/hr IV .[id number] PRN PRN Reason: Additional IVPB Infusion Lorazepam (Lorazepam 2 Mg/Ml Syringe) 2 mg IV PRN PRN PRN Reason: SEIZURES Magnesium Hydroxide (Magnesium Hydroxide 30 Ml Udc) 30 ml PO DAILY PRN PRN PRN Reason: Constipation Melatonin (Melatonin 3 Mg Tablet) 3 mg PO QHS PRN PRN PRN Reason: INSOMNIA Nitroglycerin (Nitroglycerin (Inpatient Use) 0.4 Mg Tab.Subl) 0.4 mg SUBLINGUAL Q5M PRN PRN Reason: CARDIAC/CHEST PAIN Nutritional Formula (Lactose Free) (Ensure Enlive 120 Ml Liquid) 120 ml PO 4X/DAY [facility] Last Admin: 04/01/20 09:12 Dose: 120 ml Documented by: Ondansetron HCl (Ondansetron 4 Mg/2 Ml Vial) 4 mg IV Q8H PRN PRN PRN Reason: NAUSEA/VOMITING Phenytoin Sodium (Phenytoin Na 100 Mg Capsule) 200 mg PO QHS [facility] Last Admin: 03/31/20 21:22 Dose: 200 mg Documented by: Prochlorperazine Edisylate (Prochlorperazine 10 Mg/2 Ml Vial) 5 mg IV Q4H PRN PRN PRN Reason: Breakthrough Nausea/Vomiting Psyllium Hydrophilic Mucilloid (Psyllium 1 Packet) 1 packet PO DAILY PRN PRN PRN Reason: Constipation Senna/Docusate Sodium (Senna/Docusate Sodium 1 Tablet) 2 tablet PO BID PRN PRN PRN Reason: Constipation Sertraline HCl (Sertraline 50 Mg Tablet) 50 mg PO DAILY [facility] Last Admin: 04/01/20 09:12 Dose: 50 mg Documented by: Sodium Chloride (0.9% Saline Lock 10 Ml Syringe) 10 - 40 ml IV UD PRN PRN Reason: SALINE FLUSH Throat Lozenges (Benzocaine/Menthol 1 Lozenge) 1 lozenge MUCOUS MEM Q2H PRN PRN PRN Reason: SORE THROAT Discharge Diet: No Restrictions Discharge Activity: May Not Drive Call your doctor if you observe: Shortness of breath, Dizziness, Chest pain, - - Further seizure activity Home Medications: Medications to take at Discharge phenytoin sodium extended 100 mg capsule 200 mg PO QHS 11/29/17 sertraline 50 mg tablet 50 mg PO DAILY 11/29/17 Other Amb Orders: Phenytoin (Dilantin) Level Time Frame: 1 Day, Facility: [facility], Location: [facility] Primary Care Physician: David Phelps MD [Primary Care Provider] - Please follow up with your Primary Care Physician in: 1 Week Please Follow Up With: Jose Bueno MD When: 1-2 Weeks Disposition: Home Minutes spent on discharge:: 35 Patient Condition:: Stable Medical Necessity - Tobacco Use Smoking Status: Never smoker Tobacco Use: Non-smoker Meaningful Use Info Meaningful Use Diagnoses (Choose all that apply): None applicable <Anibal France - Last Filed: 04/01/20 16:10> Discharge Date and Diagnosis - Primary Discharge Diagnosis Acute Problems: Active Problems (Last Updated 11/29/17 @ 11:32 by Gilma Wilsno) Breakthrough seizure (Acute) Anxiety and depression (Acute) Hospital Course and Treatment Summary of Care Provided: [] This patient was seen in conjunction with WHITESMITH, Karuna. I have independently interviewed and examined the patient and reviewed pertinent history, examination findings, laboratory and plan of management. I have reviewed the note and agree with the documented findings with the few additional points. In brief, patient is a 59-year-old female with history of primary generalized epilepsy was admitted with breakthrough generalized tonic-clonic seizure about 8 episodes. Patient was empirically loaded with phenytoin sodium and Keppra at the time of admission. EEG was done and reported generalized spike and polyspike discharges indicating a potentially cryptogenic activity consistent with primary generalized epilepsy. Patient feels weak but awake and alert. Labs reviewed. Magnesium 2.2. TSH 0.95. Phenytoin 12.1 in normal range. UA negative for pyuria, LE 100. Patient denies dysuria. Patient had repeat phenytoin level which showed about 30 and 27.4 due to loading dose of phenytoin. Seen by [facility] neurologist on 03/31 advised to put her back on phenytoin sodium 200 mg at bedtime her home dose. She was more drowsy and lethargic due to loading dose of Dilantin and Keppra. Patient is being discharged home Discharge medication reconciliation done. Discharge follow-up instructions completed. Discharge process discussed with the patient and her near the bedside and all questions were answered to patient's satisfaction. Advised compliance with Dilantin and follow-up LFT, thyroid, folate level and B12 with PCP Total time spent, exact 35 minutes on discharge meds reconciliation, examination, coordination of care with nurses and ancillary staff, review of imaging and blood test and discussion with the patient on follow-up instructions Patient also has anxiety and depression on sertraline. Objective: Seen and examined. Discussed with the patient's near the bedside. Patient heart rate and blood pressure in the normal range. No fever or chills. Pulse ox 99% on room air. Patient is more awake alert and oriented x3. Drowsiness has resolved. No vertigo or headache. Physical exam General: Awake, Oriented x3, Cooperative HEENT: Atraumatic, PERRLA, EOMI, Normocephalic Oral: No Gingival or Mucosal Lesions/ Ulcerations Neck: Supple, No JVD, Negative Carotid Bruits Lungs: Air entry diminished in bilateral lung bases. No crepitation/rhonchi Cardiovascular: Regular rate, Regular Rhythm, Normal S1, Normal S2, No murmurs Abdomen: Bowel Sounds Present, Soft, Non Tender, Non-Distended : No renal angle tenderness. No suprapubic tenderness. Extremities: No edema, Capillary Refill Less than 3 Seconds Skin: No rashes, No breakdown Musculoskeletal: No Tenderness to Palpation of Joints or Extremities Neurological: No focal neurological deficit. No hypotonia/muscle rigidity. Cranial nerves II-XII grossly intact, Deep Tendon Reflexes 2+/4. Psych/Mental Status: Normal Affect, Appropriate. - Physical Exam Vitals/I&O's: Vital Signs Temp Pulse Resp BP Pulse Ox 98.2 F 85 18 117/66 99 04/01/20 15:08 04/01/20 15:08 04/01/20 15:08 04/01/20 15:08 04/01/20 15:08 Oxygen Flow Rate (L/min) 2 Oxygen Delivery Method Room Air Weight: 133 lb 6.075 oz Body Mass Index (BMI) 23.4 Intake and Output for Last 24 Hours 03/30/20 03/31/20 04/01/20 23:59 23:59 23:59 Intake Total 2860 / 2860 2086.67 / 2086.67 Output Total 1500 / 1500 600 / 600 Balance 1360 / 1360 1486.67 / 1486.67 Microbiology Past 72 Hours 03/31/20 11:50 Urine, Clean Catch Urine Culture - Preliminary Culture exhibits no growth. Laboratory Results 03/31/20 15:27: Phenytoin 29.9 H 04/01/20 11:30: Phenytoin 27.4 H Inpatient E&M: [id number] Disch Hosp
[2020-04-01 13:04] LABS: Phenytoin (Dilantin) Level 27.4 mL (10.0-20.0)
--- NOTE | 2020-04-01 14:29 | CASEMGMT ---
GREG SANDERS NOTE: PT/OT notes have been reviewed. Additional therapy recommended as well as DME for ambulation. GREG SANDERS to room. Introduced self and role of GREG SANDERS. Pt/, who is at bedside, made aware of recommendations. Pt declines wanting any HHC or OP therapy at this time. Pt also declines wanting any DME. Pt/ re-inforce that someone will be with pt 24/09 and can assist with ambulation. Pt states she has an appt with her PCP on Saturday and wants to wait until then to see how she is doing. She states if she continues to have balance/gait issues after her Dilantin levels come down, then she will re-consider OP therapy, and she states she will discuss this with her PCP at that time if she decides she would like OP therapy. Pt/ deny having any needs/concerns/questions at this time. Instructed to ask for GREG SANDERS if anything arises. Ashley SHEA RN, CM
--- NOTE | 2020-04-01 14:35 | PHA.DC.MR ---
Pharmacy Service has performed discharge medication reconciliation for this patient. The patient's discharge medication list was reviewed for discrepancies and discrepancies were resolved. Home Medications phenytoin sodium extended 100 mg capsule 200 mg PO QHS 11/29/17 sertraline 50 mg tablet 50 mg PO DAILY 11/29/17
[2020-04-01 15:08] VITALS: BP 117/66; PULSE 85; RESP 18; TEMP 36.8; O2SAT 99
--- NOTE | 2020-04-01 15:21 | PCM.WORK.EX ---
Work/School Excuse Work/School Excuse for:: Patient Please excuse this person from:: Work From: 03/30/20 through: 04/08/20 - until cleared by PCP
== END 2020-04-01 15:14 | disposition home or self-care (01) | DRG 101 ==
LOC: ED 20:51 → PCU 23:47
PROVIDERS: Nurse Practitioner Family; Admitting Provider Family Medicine; Emergency Provider Emergency Medicine; PCP Family Medicine; Visit Provider Internal Medicine
DX: G40.409 Other generalized epilepsy and epileptic syndromes, not intractable, without status epilepticus (principal); F32.9 Major depressive disorder, single episode, unspecified; F41.9 Anxiety disorder, unspecified; Z79.899 Other long term (current) drug therapy; R94.01 Abnormal electroencephalogram [EEG]
CPT/HCPCS: 36415; 70450; 80053; 80076; 80185; 80307; 81001; 83735; 84443; 85025; 87086; 87088; 95819; 97162; 97802; 99285; J7030; A4216

== ENCOUNTER → 2020-04-02 09:19 | Outpatient (CLI) | payer OTHER, SELFPAY ==
[2020-03-31 00:56] VITALS: BMI 23.4
[2020-04-02 10:33] LABS: Phenytoin (Dilantin) Level 24.7 mL (10.0-20.0)
== END ==
PROVIDERS: PCP Family Medicine; Visit Provider Nurse Practitioner Family
DX: T42.0X1A Poisoning by hydantoin derivatives, accidental (unintentional), initial encounter (principal)
CPT/HCPCS: 36415; 80185

== ENCOUNTER → 2020-04-07 14:49 | Outpatient (CLI) | payer OTHER, SELFPAY ==
[2020-03-31 00:56] VITALS: BMI 23.4
[2020-04-07 18:05] LABS: Phenytoin (Dilantin) Level 10.7 mL (10.0-20.0)
== END ==
PROVIDERS: PCP Family Medicine; Referring Provider Family Medicine; Visit Provider Family Medicine
DX: G40.909 Epilepsy, unspecified, not intractable, without status epilepticus (principal)
CPT/HCPCS: 36415; 80185

== ENCOUNTER → 2020-05-09 06:24 | Outpatient (CLI) | payer OTHER, SELFPAY ==
--- NOTE | 2020-05-09 06:26 | MRI_ITS ---
STUDY: MRI BRAIN WITH AND WITHOUT CONTRAST REASON FOR EXAM: Female, 59 years old. Eplepsy TECHNIQUE: Standardized multiplanar fat and water weighted pulse sequences were obtained. IV Dotarem 11ml was administered for the contrast portion of the examination. COMPARISON: None. FINDINGS: Normal size of the ventricles and extra-axial spaces for the patient''s age. Normal white matter tracts of the supratentorial brain. Normal bilateral basal ganglia. Normal thalami. There is no extra-axial fluid accumulation. Normal flow voids within the major intracranial circulation suggesting patency by spin echo criteria. Normal venous enhancement. There is no enhancing intra-axial or extra-axial abnormality. Normal sella turcica, pituitary gland, infundibular stalk, optic chiasm and hypothalamus. Normal tectal plate and pineal gland. Normal midbrain, kailash and medulla. Normal cerebellum. Normal basal cisterns. Normal bilateral temporal bones. Normal bilateral internal auditory canals. No demonstrated orbital abnormality, within the constraints of a routine brain study. Normal visualized paranasal sinuses. Normal calvarium and skull base. Normal visualized soft tissue structures. Normal visualized upper cervical spine. MRI/Brain W/WO Contrast IMPRESSION: Normal unenhanced and enhanced MRI of the brain. Electronically Signed: Kavita Hernandez MD at 11:06 EST Tel , Service support ,
[2020-05-09 07:26] LABS: Phenytoin (Dilantin) Level 11.7 mL (10.0-20.0)
== END ==
PROVIDERS: PCP Family Medicine; Referring Provider Psychiatry & Neurology Neurology; Visit Provider Psychiatry & Neurology Neurology
DX: G40.919 Epilepsy, unspecified, intractable, without status epilepticus (principal)
CPT/HCPCS: 36415; 70553; 80185; A9575

== ENCOUNTER → 2020-08-03 16:23 | Outpatient (CLI) | payer OTHER, SELFPAY ==
[2020-08-03 17:55] LABS: Phenytoin (Dilantin) Level 2.6 mL (10.0-20.0)
== END ==
PROVIDERS: PCP Family Medicine; Visit Provider Nurse Practitioner Family
DX: G40.909 Epilepsy, unspecified, not intractable, without status epilepticus (principal)
CPT/HCPCS: 36415; 80185

== ENCOUNTER → 2020-08-10 14:44 | Outpatient (CLI) | payer OTHER, SELFPAY ==
[2020-08-10 17:35] LABS: Phenytoin (Dilantin) Level 1.7 mL (10.0-20.0)
== END ==
PROVIDERS: PCP Family Medicine; Referring Provider Family Medicine; Visit Provider Family Medicine
DX: G40.909 Epilepsy, unspecified, not intractable, without status epilepticus (principal)
CPT/HCPCS: 36415; 80185

== ENCOUNTER → 2020-08-24 13:39 | Outpatient (CLI) | payer OTHER, SELFPAY ==
[2020-08-24 15:31] LABS: Phenytoin (Dilantin) Level 8.9 mL (10.0-20.0)
== END ==
PROVIDERS: PCP Family Medicine; Referring Provider Family Medicine; Visit Provider Family Medicine
DX: G40.909 Epilepsy, unspecified, not intractable, without status epilepticus (principal)
CPT/HCPCS: 36415; 80185

== ENCOUNTER → 2020-12-14 09:39 | Outpatient (CLI) | payer OTHER, SELFPAY ==
--- NOTE | 2020-12-14 09:55 | BI_ITS ---
MAMMOGRAPHY - BILATERAL SCREENING REASON FOR EXAM: Female, 60 years old. Routine annual screening examination. PERTINENT HISTORY: Non-contributory. TECHNIQUE: Digital bilateral breast miguel a (3D mammographic acquisition) in the CC and MLO projections. 2-D mediolateral oblique (MLO) and craniocaudad (CC) views of both breasts were obtained. CAD: Full Field Digital Mammography with Computer Added Detection was performed. COMPARISON: Comparison is made with prior study 11/20/2016 and 11/05/2013. FINDINGS: Breast Composition: There are scattered areas of fibroglandular density. There are no dominant masses or suspicious calcifications. Stable benign-appearing bilateral axillary lymph nodes. No other significant abnormalities are identified. There has been no significant change since the prior study. BI/SCRN MAMM (CAD)W/MIGUEL A BILAT IMPRESSION: Stable bilateral screening mammogram. Yearly follow-up mammogram recommended. (A) ASSESSMENT CATEGORY: BIRADS Category 2: Benign. A letter regarding these results will be sent to the patient by the facility within 30 days. Approximately 10% of breast cancers are not detected by mammography. A normal mammogram should not delay biopsy of a clinically suspicious abnormality. [id number] Electronically Signed: Varun Anderson MD at 11:14 EDT , Service support ,
--- NOTE | 2020-12-14 09:56 | BD_ITS ---
STUDY: DUAL ENERGY X-RAY ABSORPTIOMETRY / DXA REASON FOR EXAM: Female, 60 years old. V76.12ScreeningBONE DENSITY REASON FOR EXAM TECHNIQUE: Bone Mineral Density (BMD) measurements of lumbar spine and bilateral hips were obtained. COMPARISON: Comparison is made with prior examination of 11/20/2016. FINDINGS: Lumbar Spine (L1-L4): g/cm2 (0.896) / T-score (-1.4) / Z-score (-0.1) Findings are suggestive of osteopenia with a low fracture risk. Left Femur Total: g/cm2 (0.737) / T-score (-1.7) / Z-score (0.8) Left Femoral Neck: g/cm2 (0.498) / T-score (-3.2) / Z-score (-2.0) Right Femur Total: g/cm2 (0.732) / T-score (-1.7) / Z-score (-0.9) Right Femoral Neck: g/cm2 (0.500) / T-score (-3.1) / Z-score (-1.9) The T-Scores on the most recent prior examination were: Lumbar Spine (L1-L4): There has been worsening of bone density since the previous examination. Left Femur Total: which represents a worsening of 1.4%. Right Femur Total: which represents a worsening of 1%. BD/Dexa Bone Density Study IMPRESSION: The patient is considered osteoporotic as outlined below according to World [place] Organization (WHO) criteria with a high fracture risk. There has been worsening of bone density since the previous examination. Reference Information: The T-score is the number of standard deviations above or below the standard which is normal for young adults at their peak bone mineral density. The World Health Organization (WHO) interprets the T-scores as follows: Above -1 Normal bone density Between -1 and -2.5 Osteopenia Equal to / or below -2.5 Osteoporosis As a practical clinical guideline, osteopenia may be graded as follows: Mild -1 through -1.5 Moderate -1.6 through -2.0 Severe -2.1 through -2.4 The Z-score is the number of standard deviations above or below age-matched controls. A Z-score of less than -1.5 would be considered abnormal. References: 1. NIH Osteoporosis and Related Bone Diseases www osteo.org 2. International Society for Clinical Densitometry www iscd.org 3. National Osteoporosis Foundation www nof.org Electronically Signed: Varun Anderson MD at 13:00 EDT , Service support ,
== END ==
PROVIDERS: PCP Family Medicine; Referring Provider Family Medicine; Visit Provider Family Medicine
DX: Z00.00 Encounter for general adult medical examination without abnormal findings (principal); Z12.31 Encounter for screening mammogram for malignant neoplasm of breast
CPT/HCPCS: 77063; 77067; 77080

== ENCOUNTER → 2021-01-05 09:02 | Outpatient (CLI) | payer OTHER, SELFPAY ==
[2021-01-05 11:32] LABS: Phenytoin (Dilantin) Level 30.1 mL (10.0-20.0)
== END ==
PROVIDERS: PCP Family Medicine; Referring Provider Family Medicine; Visit Provider Family Medicine
DX: G40.909 Epilepsy, unspecified, not intractable, without status epilepticus (principal)
CPT/HCPCS: 36415; 80185

== ENCOUNTER → 2021-01-09 08:59 | Outpatient (CLI) | payer OTHER, SELFPAY | PROVIDERS: PCP Family Medicine; Referring Provider Family Medicine; Visit Provider Family Medicine | DX: G40.909 Epilepsy, unspecified, not intractable, without status epilepticus (principal) | CPT/HCPCS: 36415; 80185 ==

== ENCOUNTER → 2021-01-10 14:04 | Outpatient (CLI) | payer OTHER, SELFPAY ==
--- NOTE | 2021-01-10 14:06 | RAD_ITS ---
STUDY: X-RAY - LEFT SHOULDER REASON FOR EXAM: Female, 60 years old. left shoulder pain after pulling, moving patients recently TECHNIQUE: 4 view(s) of the shoulder. COMPARISON: None. FINDINGS: Normal glenohumeral articulation. Normal acromioclavicular joint. Normal acromion. Normal humeral head and visualized proximal humerus. The soft tissue structures are unremarkable. There is no demonstrated fracture. Normal visualized pulmonary apex. RAD/Shoulder min 2 Views IMPRESSION: Normal x-ray examination of the shoulder. Electronically Signed: Randy Martinez MD at 18:47 EST , Service support ,
== END ==
PROVIDERS: PCP Family Medicine; Referring Provider Registered Nurse; Visit Provider Registered Nurse
DX: M25.512 Pain in left shoulder (principal)
CPT/HCPCS: 73030

== ENCOUNTER → 2021-01-16 08:58 | Outpatient (CLI) | payer OTHER, SELFPAY ==
[2021-01-16 10:23] LABS: Phenytoin (Dilantin) Level 7.8 mL (10.0-20.0)
== END ==
PROVIDERS: PCP Family Medicine; Visit Provider Family Medicine
DX: G40.909 Epilepsy, unspecified, not intractable, without status epilepticus (principal)
CPT/HCPCS: 36415; 80185

== ENCOUNTER 2021-01-31 09:00 | Outpatient (RCR) | payer OTHER, SELFPAY ==
--- NOTE | 2021-01-12 13:24 | HP.PTEVAL_ITS ---
Patient's Visit Information GRABIEL GONZALEZ is a 60 year old F referred to Physical Therapy by JOHNY Johnson with a diagnosis of Left Shoulder Pain. Date of Evaluation: 01/12/21 Physical Therapist: Natividad Jolly DPT - Visit Plan Frequency: 2x /Week Duration: 4 Weeks Plan: Focus on pain free ROM, strength, flex and muscular endurance- modality of US and E-stim for pain relief. HEP Given IE: pendulums - Subjective About a week ago she was doing garden work and the shoulder started to ache- then worked on Saturday and lifted some heavy patients- and then Saturday her shoulder woke her up and she had little range of motion. It is better than Saturday but not good. Did not have a snap or pop. Pain is located in the anterior shoulder and also in the neck. Does radiate to the elbow. Agg: using it Worst: 6/10. When she moves it back down to neutral the pain completely goes away Best: 0/10 Eases: rest. Describes pain as sharp/shooting. No N/T. 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 No KIMBLE, burred vision, dizziness. Right kimble nd dominate. 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 Currently off work- may allow her to do light duty but is waiting. Has had x-rays which were negative. No MRI or injections. Sleep: not disturbed-as long as she does not sleep on that side. PMHx: epilepsy, depression, osteoporosis Meds: fosomax (has not started yet), zoloft, trazadone, dilantin. Last seizure last March- grand mal- (turn on side- call her ). - Objective Posture: FH, RS- can correct but does not maintain- guarding of the left UE- holds close to body. Gait: decreased arm swing and trunk rotation. Palpation: tender along anterior shoulder. Sensation: WNL. ROM: AROM: flexion: 45 degrees, Abd: 60 degrees, IR: to belt ER: 60 degrees. PROM: guarded with pain Flexion: 90 degrees, Abd: 90 degrees. Strength: Isometric:3-/5 at neutral Elbow:4+/5, Shop Worker: equal - Balance/Special Test Scores Quick DASH Score: 68.1800 - Goals Goal 1:: Patient will be I with HEP and progression Goal 2:: Patient will demo full AROM of the left shoulder Goal Time Frame: 4-6 Weeks Goal 3:: Patient will maintain proper posture t/o tx session to demo scap s/s Goal Time Frame: 4-6 Weeks Goal 4:: Patient will report no pain for 1 week Goal Time Frame: 4-6 Weeks - Rehabilitation Potential Physical Therapy Diagnosis: Patient presents with hypomobility- she has decreased ROM, scap and UE strength/stabilization and muscular endurance leading to poor posture and increased pain with ADLs. Rehabilitation Potential: Good - Anticipated Interventions Patient/Client Instruction: Educate patient on: Benefits of Fitness Program Therapeutic Exercise to Include: Strength training, Endurance training, Coordination, Agility training, Body mechanics, Postural training, Flexibilty training, Dynamic Lumbar Stabilization, Scapular Strength/Stabilization For the Purpose of:: To improve muscle performance and motor function TENS: Yes Cryotherapy (ice pack, ice massage): Yes Thermo therapy (hot pack): Yes Ultrasound (thermal/non thermal): Yes For the Purpose of:: To decrease pain Thank you for the opportunity to evaluate your patient. For Medicare and Medicare HMO plans, please review the plan of care and approve it. It will need to be FAXED BACK to us at [phone] for Medicare purposes. For Medicare only, by signing this I certify the plan of care. Please let me know if there are questions or concerns regarding this plan of care. Physician Signature:___ Date:
--- NOTE | 2021-04-03 11:50 | HP.PT.NRP ---
GRABIEL LAZONER was seen in my office for initial evaluation on 01/12/21. The following Plan of Care was established for this patient: Initial Frequency: 2x /Week Initial Duration: 4 Weeks Patient/Client Instruction: Educate patient on: Benefits of Fitness Program Therapeutic Exercise to Include: Strength training, Endurance training, Coordination, Agility training, Body mechanics, Postural training, Flexibilty training, Dynamic Lumbar Stabilization, Scapular Strength/Stabilization For the Purpose of:: To improve muscle performance and motor function TENS: Yes Cryotherapy (ice pack, ice massage): Yes Thermo therapy (hot pack): Yes Ultrasound (thermal/non thermal): Yes For the Purpose of:: To decrease pain This patient was last seen in our office . Pertinent comments regarding their Physical therapy will appear below: Patient has not attended physical therapy in over 30 days- appropriate for d/c and return to MD for further evaluation as needed. At this point I will be discontinuing this patient from physical therapy. I would be happy to see this patient again in the future if found appropriate by the physician. Thank you! Natividad Jolly, LINDA Balance/Gait/Functional tests - Balance/Special Test Scores Quick DASH Score: [phone]
== END 2021-01-31 19:00 | disposition home or self-care (01) ==
LOC: PT 09:00
PROVIDERS: PCP Family Medicine; Referring Provider Registered Nurse; Visit Provider Registered Nurse
DX: M25.512 Pain in left shoulder (principal)
CPT/HCPCS: 97014; 97110; 97162; 97164; G0283

== ENCOUNTER → 2021-02-14 07:50 | Outpatient (CLI) | payer OTHER, SELFPAY ==
--- NOTE | 2021-02-14 07:57 | MRI_ITS ---
STUDY: MRI LEFT SHOULDER REASON FOR EXAM: Left shoulder pain since 01/09/2021, limited range of motion. TECHNIQUE: Standardized fat and water weighted pulse sequences were obtained in all 3 orthogonal planes. COMPARISON: Radiographs 01/10/2021. FINDINGS: There is supraspinatus tendinosis (T2 coronal image 13) without discrete tendon tear. Normal infraspinatus tendon. There is mild subscapularis tendinosis (proton-density axial image 14) without discrete tendon tear. Normal teres minor tendon. Normal supraspinatus muscle. Normal infraspinatus muscle. Normal subscapularis muscle. Normal teres minor muscle. There is a glenohumeral joint effusion. There is a small cyst in the posterior aspect of the humeral head. Normal biceps labral complex. There is tendinosis of the intracapsular long biceps tendon (T2 sagittal images 11-14). Normal labrum. Normal capsulo- ligamentous complex. Normal acromioclavicular articulation. There is a Type I morphology (flat undersurface), with a neutral orientation. There is a small volume of subacromial-subdeltoid bursal fluid. Normal visualized coracohumeral and coracoacromial ligaments. Normal deltoid muscle. Normal trapezius muscle. MRI/Upper Ext Joint Only(Routine) IMPRESSION: Supraspinatus and subscapularis tendinosis without demonstrated rotator cuff tear. Tendinosis of the long biceps tendon. Mild subacromial-subdeltoid bursitis. Glenohumeral joint effusion. Electronically Signed: Caden Casanova MD at 9:21 EST Tel , Service support ,
== END ==
PROVIDERS: PCP Family Medicine; Referring Provider Registered Nurse; Visit Provider Registered Nurse
DX: M25.512 Pain in left shoulder (principal)
CPT/HCPCS: 73221

== ENCOUNTER 2021-05-10 13:57 | Outpatient (CLI) | payer OTHER, SELFPAY ==
--- NOTE | 2021-05-10 14:01 | VDLE_ITS ---
Reason For Study: Leg swelling Procedure LEFT This is a venous duplex using B-mode, color GSV is normal. flow and spectral Doppler. CFV is compressible, spontaneous, phasic, Exam performed in department. competent, and demonstrates normal A preliminary report was called and/or faxed augmentation. to Mattie. FV is compressible, spontaneous, phasic, competent and demonstrates normal augmentation. POP V is compressible, spontaneous, phasic, competent and demonstrates normal augmentation. T/P Trunk is compressible. PTV is compressible. LT PerV is compressible. VL/Venous Duplex US, Unilateral Interpretation Summary There is no evidence of left lower extremity deep vein thrombosis. Left great s aphenous vein appears patent and compressible segmentally. There is a linear finding within the left calf muscle just beneath the fascia suggesting possible fluid or edema. Etiology is not clear. C linical correlation or additional soft tissue imaging might be appropriate. Ordering Physician: David Phelps Referring Physician: David Phelps Performed By: Fe Mejias RVT
== END 2021-05-10 23:59 | disposition home or self-care (01) ==
LOC: CVS 13:59
PROVIDERS: PCP Family Medicine; Referring Provider Family Medicine; Visit Provider Family Medicine
DX: M79.89 Other specified soft tissue disorders (principal)
CPT/HCPCS: 93971

== ENCOUNTER 2021-05-11 09:21 | Outpatient (CLI) | payer OTHER, SELFPAY ==
--- NOTE | 2021-05-11 09:27 | CT_ITS ---
STUDY: CT SCAN LOWER EXTREMITY LEFT REASON FOR EXAM: Female, 60 years old. Left Leg, swelling with fluid on finding of US doppler RADIATION DOSAGE (If Supplied By Facility): CTDIvol = ( 9.21 ) mGy, DLP = ( 520.94 ) mGycm. Individualized dose optimization techniques were used for this CT.? TECHNIQUE: Multiple axial tomographic images of the left lower leg was obtained without intravenous contrast administration. Coronal and sagittal reconstruction was obtained as well. COMPARISON: None. FINDINGS: There is evidence of increased linear markings within the subcutaneous tissues along the medial aspect of the left leg. There is evidence of a 1.9 cm x 1.2 cm fluid collection along the medial aspect of the left popliteal fossa suggestive of a Fong''s cyst. Linear fluid collection extends along the medial posterior aspect of the muscle group down to the lower leg. Findings may represent a ruptured Fong''s cyst. CT/Extremity Lower WITH Contrast IMPRESSION: Findings suggestive of a ruptured Fong''s cyst with a small FONG cyst remnant in the medial popliteal fossa with subcutaneous edema and rim of the fluid surrounding the posterior medial aspect of the calf muscle group down to the distal portion of the leg. Electronically Signed: Varun Anderson MD at 10:41 EST ,
== END 2021-05-11 23:59 | disposition home or self-care (01) ==
PROVIDERS: PCP Family Medicine; Referring Provider Family Medicine; Visit Provider Family Medicine
DX: M79.89 Other specified soft tissue disorders (principal)
CPT/HCPCS: 73701; Q9967; A4216

== ENCOUNTER → 2021-05-11 | Outpatient (CLI) | payer OTHER, SELFPAY ==
[2021-05-11 10:10] LABS: Absolute Lymphocyte Count 1.13 X10^3/uL (0.83-4.51); Absolute Neutrophil Count 3.4 X10^3/uL (2.0-7.7); Basophil# 0.02 X10^3/uL; Basophil% 0.4 % (0-1); Eosinophil# 0.14 X10^3/uL; Eosinophils% 2.8 % (0-5); Hematocrit 37.6 % (37-47); Hemoglobin 12.2 g/dL (12.0-15.0); Lymphocyte # 1.13 X10^3/ul (0.83-4.51); Lymphocyte % 22.5 % (19-41); Mean Corp Hgb Conc 32.4 g/dL (32-36); Mean Corpuscular Hgb 32.6 pg (27.0-32.0); Mean Corpuscular Volume 100.5 fL (81-99); Mean Platelet Vol. 9.3 fl (6.2-12.0); Monocyte# 0.35 X10^3/uL; NRBC Flagged by Analyzer 0 % (0-5); Neutrophil # 3.38 X10^3/uL (2.7-7.7); Neutrophil % 67.1 % (47-70); Platelet Count 267 K/mm3 (150-450); RBC Distribution Width CV 11.6 % (11.6-14.6); RBC Distribution Width SD 42.5 fl (35.1-43.9); Red Blood Count 3.74 M/mm3 (4.2-5.4)
[2021-05-11 10:23] LABS: Anion Gap 4 (5-15); BUN 9 mg/dL (7-18); BUN/Creat Ratio 12.9 RATIO (10-20); Calcium,Total 8.6 mg/dL (8.5-10.1); Chloride 99 mmol/L (98-107); EST Glomerular Filtration Rate 92 mL/min (>60); Est Glom Filt Rate - Afr Amer 111 mL/min (>60); Glucose 166 mg/dL (74-106); Potassium 3.6 mmol/L (3.5-5.1); Sodium Level 134 mmol/L (136-145)
== END | disposition home or self-care (01) ==
LOC: MFPLAB 09:04
PROVIDERS: PCP Family Medicine; Referring Provider Family Medicine; Visit Provider Family Medicine
DX: M79.89 Other specified soft tissue disorders (principal)
CPT/HCPCS: 36415; 80048; 85025

== ENCOUNTER 2021-05-17 12:17 | Outpatient (CLI) | payer OTHER, SELFPAY ==
[2021-05-17 13:38] LABS: AUTO B FLUID DILUENT BKGD CT WBC <0.1 RBC <0.01 (W<.1,R<.01); Appearance /Synovial Fluid Purulent (CLEAR); Color / Synovial Fluid Yellow (Pale Yellow); Source- Body Fluid SYNOVIAL
[2021-05-17 13:40] LABS: RBC /Synovial Fluid 0.004 10^6/uL (0)
[2021-05-17 13:45] LABS: CRYSTALS, BODY FLUID See PATH REV
[2021-05-17 14:02] LABS: Lymph 2 %; Monocyte /Synovial Fluid 1 %; Neutrophil 97 % (0-25)
[2021-05-18 14:07] LABS: Pathologist Comment Reviewed; Pathologist Review Reviewed
[2021-05-19 10:14] LABS: Source / Synovial Fluid L KNEE
== END 2021-05-17 23:59 | disposition home or self-care (01) ==
LOC: LABSPEC 12:19
PROVIDERS: PCP Family Medicine; Referring Provider Orthopaedic Surgery; Visit Provider Orthopaedic Surgery
DX: M71.22 Synovial cyst of popliteal space [Baker], left knee (principal)
CPT/HCPCS: 87015; 87070; 87075; 87101; 87116; 87205; 87206; 89050; 89051; 89060

== ENCOUNTER → 2022-06-20 | Outpatient (CLI) | payer OTHER, SELFPAY ==
--- NOTE | 2022-06-20 12:02 | RAD_ITS ---
STUDY: X-RAY - CERVICAL SPINE REASON FOR EXAM: Female, 61 years old. Cervical radiculopathy. TECHNIQUE: 5 view(s) of the cervical spine were obtained. COMPARISON: October 28, 2015. FINDINGS: Osteopenia. Normal anterior atlantoaxial articulation. Normal odontoid process. Normal cervical lordosis. Diffuse uncovertebral and facet sclerosis unchanged. Mild intervertebral disc space narrowing at C5-6, C6-7 and C7-T1 unchanged. Minimal anterior bony neural foraminal encroachment at C4-5 and C5-6 bilaterally, left slightly greater than right. Normal soft tissues. RAD/Cerv Spine 4 or 5 Views IMPRESSION: Osteopenia with relatively stable lower cervical spondylosis as described. No acute abnormality, evidence of erosive changes/fusion. Electronically Signed: Sinan Prabhakar, at 14:07 EDT ,
== END | disposition home or self-care (01) ==
LOC: MTRAD 11:52
PROVIDERS: PCP Family Medicine; Referring Provider Family Medicine; Visit Provider Family Medicine
DX: M54.12 Radiculopathy, cervical region (principal)
CPT/HCPCS: 72050

== ENCOUNTER → 2022-07-23 | Outpatient (CLI) | payer OTHER, SELFPAY ==
--- NOTE | 2022-07-23 10:21 | MRI_ITS ---
HISTORY: cervical radiculopathy, RT HAND NUMBNESS, RT NECK PAIN. TECHNIQUE: Multiplanar and multisequence MR images of the cervical spine were obtained without contrast. 235 images. COMPARISON: XR 06/20/2022. FINDINGS: VERTEBRAE: Vertebral body heights maintained. Mild degenerative bone marrow endplate changes at multiple levels particularly C6-7. Small C7 hemangioma incidentally noted. VERTEBRAL ALIGNMENT: No anterior or posterior subluxation. SPINAL CORD: Cervical cord signal and morphology within normal limits. SOFT TISSUES: No prevertebral fluid collection. INTERVERTEBRAL DISCS: C2-3: Mild posterior disc protrusion without significant central canal stenosis or foraminal narrowing. C3-4: Mild posterior disc bulge osteophyte complex with uncovertebral and facet arthropathy resulting in mild central canal stenosis and mild right greater than left foraminal narrowing. C4-5: Mild posterior disc bulge osteophyte complex with uncovertebral and facet arthropathy resulting in mild-moderate central canal stenosis, moderate right, and mild left foraminal narrowing. C5-6: Mild posterior disc bulge osteophyte complex with uncovertebral and facet arthropathy resulting in mild central canal stenosis and bilateral foraminal narrowing. C6-7: Moderate posterior disc protrusion with uncovertebral and facet arthropathy resulting in mild central canal stenosis and mild right greater than left foraminal narrowing. C7-T1: No significant posterior disc protrusion, central canal stenosis, or foraminal narrowing. MRI/Spine Cervical (Routine) IMPRESSION: Multilevel degenerative disc disease resulting in mild spinal canal stenosis and bilateral foraminal narrowing at C3-4, C5-6, and C6-7. Mild-moderate spinal canal stenosis with moderate right and mild left foraminal narrowing at C4-5. Electronically Signed: Ruth Urban MD at 9:34 EDT ,
== END | disposition home or self-care (01) ==
PROVIDERS: PCP Family Medicine; Referring Provider Family Medicine; Visit Provider Family Medicine
DX: M54.12 Radiculopathy, cervical region (principal)
CPT/HCPCS: 72141

== ENCOUNTER → 2022-08-27 | Outpatient (CLI) | payer OTHER, SELFPAY ==
--- NOTE | 2022-08-27 15:18 | NEURO_ITS ---
NCS and/or EMG Patient Report Ordering Doctor: Luis Hathaway DATE OF SERVICE: 08/27/22 Findings: Nerve conduction studies were performed in the right upper extremity. The right median motor study recording the abductor pollicis brevis showed a normal amplitude, borderline distal latency and normal conduction velocity. The right ulnar motor study recording the abductor digiti minimi showed a normal amplitude, normal distal latency and normal conduction velocity. No conduction block or focal slowing was present across the elbow. The right median sensory response recording digit two showed a normal amplitude, normal latency and borderline conduction velocity. The right ulnar sensory response recording digit five showed a normal amplitude, latency and conduction velocity. The right radial sensory response recording over the extensor snuff box showed a normal amplitude, latency and conduction velocity. Right median-ulnar lumbrical / interosseous motor latencies showed a prolonged median latency compared to the ulnar. Needle EMG of the right upper extremity muscles was performed. No denervation was seen in any muscle. Motor units in the abductor pollicis brevis were slightly large. All other motor unit morphology, activation and recruitment patterns were normal. Impression: This is a mildly abnormal study. 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 The pathophysiology is demyelination. These findings are compatible with the clinical diagnosis of carpal tunnel syndrome. These abnormalities are slightly improved compared to the prior study from 2017. In addition, there is no electrophysiologic evidence of a superimposed cervical radiculopathy in the right upper extremity. Gasper Syed D.O. Multi Select Codes Neurology Neurology Interp Codes: 75262-81 Musc test done w/n test comp (interp) and 24639-47 [facility] cndj test 7-8 studies (interp)
== END | disposition home or self-care (01) ==
LOC: PSN 14:21
PROVIDERS: PCP Family Medicine; Referring Provider Orthopaedic Surgery; Visit Provider Orthopaedic Surgery
DX: M54.12 Radiculopathy, cervical region (principal)
CPT/HCPCS: 95886; 95910

== ENCOUNTER → 2023-01-03 | Outpatient (CLI) | payer OTHER, SELFPAY ==
[2023-01-03 12:31] LABS: Vitamin D,25 Hydroxy 48.6 ng/mL
[2023-01-03 12:33] LABS: Anion Gap 3 (5-15); BUN 12 mg/dL (7-18); BUN/Creat Ratio 17.7 RATIO (10-20); Calcium,Total 9.4 mg/dL (8.5-10.1); Chloride 107 mmol/L (98-107); Cholesterol 220 mg/dL (200); Creatinine, Serum 0.68 mg/dL (0.55-1.02); EST Glomerular Filtration Rate 94 mL/min (>60); Est Glom Filt Rate - Afr Amer 114 mL/min (>60); Glucose 87 mg/dL (74-106); High Density Lipoprotein 76 mg/dL; Potassium 4.2 mmol/L (3.5-5.1); Sodium Level 140 mmol/L (136-145); Triglycerides 101 mg/dL; Very Low Density Lipoprotein 20 mg/dL (5-40)
== END | disposition home or self-care (01) ==
LOC: MFPLAB 10:20
PROVIDERS: PCP Family Medicine; Visit Provider Family Medicine
DX: Z00.00 Encounter for general adult medical examination without abnormal findings (principal)
CPT/HCPCS: 36415; 80048; 80061; 82306

== ENCOUNTER 2023-03-05 09:24 | Outpatient (CLI) | payer OTHER, SELFPAY ==
--- NOTE | 2023-03-05 09:28 | BI_ITS ---
MAMMOGRAPHY - BILATERAL SCREENING REASON FOR EXAM: Female, 62 years old. Routine annual screening examination. PERTINENT HISTORY: Non-contributory. TECHNIQUE: Digital bilateral breast miguel a (3D mammographic acquisition) in the CC and MLO projections. 2-D mediolateral oblique (MLO) and craniocaudad (CC) views of both breasts were obtained. CAD: Full Field Digital Mammography with Computer Added Detection was performed. COMPARISON: Comparison is made with prior study dated December 14, 2020 and November 20, 2016. FINDINGS: Breast Composition: There are scattered areas of fibroglandular density. There are no dominant masses or suspicious calcifications. Stable small benign-appearing bilateral axillary lymph nodes. No other significant abnormalities are identified. There has been no significant change since the prior study. BI/SCRN MAMM (CAD)W/MIGUEL A BILAT IMPRESSION: Stable bilateral screening mammogram. Yearly follow-up mammogram recommended. (A) ASSESSMENT CATEGORY: BIRADS Category 2: Benign. A letter regarding these results will be sent to the patient by the facility within 30 days. Approximately 10% of breast cancers are not detected by mammography. A normal mammogram should not delay biopsy of a clinically suspicious abnormality. [id number] Electronically Signed: Varun Anderson MD at 10:53 EST ,
--- NOTE | 2023-03-05 09:30 | BD_ITS ---
STUDY: DUAL ENERGY X-RAY ABSORPTIOMETRY / DXA REASON FOR EXAM: Female, 62 years old. [id number] TECHNIQUE: Bone Mineral Density (BMD) measurements of lumbar spine and bilateral hips were obtained. COMPARISON: Comparison is made with prior study December 14, 2020. FINDINGS: Lumbar Spine (L1-L4): g/cm2 (0.945) / T-score (-0.9) / Z-score (0.5) Findings are suggestive of normal bone density with a low fracture risk. Left Femur Total: g/cm2 (0.721) / T-score (-1.8) / Z-score (-0.8) Left Femoral Neck: g/cm2 (0.530) / T-score (-2.9) / Z-score (-1.6) Right Femur Total: g/cm2 (0.724) / T-score (-1.8) / Z-score (-0.8) Right Femoral Neck: g/cm2 (0.492) / T-score (-3.2) / Z-score (-1.9) The T-Scores on the most recent prior examination were: Lumbar Spine (L1-L4): There has been improvement of bone density since the previous examination. Left Femur Total: which represents a worsening of 2.1%. Right Femur Total: which represents a worsening of 1.1%. BD/Dexa Bone Density Study IMPRESSION: The patient is considered osteoporotic as outlined below according to World Amos Organization (WHO) criteria with a high fracture risk. There has been worsening of bone density since the previous examination. Reference Information: The T-score is the number of standard deviations above or below the standard which is normal for young adults at their peak bone mineral density. The World Health Organization (WHO) interprets the T-scores as follows: Above -1 Normal bone density Between -1 and -2.5 Osteopenia Equal to / or below -2.5 Osteoporosis As a practical clinical guideline, osteopenia may be graded as follows: Mild -1 through -1.5 Moderate -1.6 through -2.0 Severe -2.1 through -2.4 The Z-score is the number of standard deviations above or below age-matched controls. A Z-score of less than -1.5 would be considered abnormal. References: 1. NIH Osteoporosis and Related Bone Diseases www osteo.org 2. International Society for Clinical Densitometry www iscd.org 3. National Osteoporosis Foundation www nof.org Electronically Signed: Varun Anderson MD at 11:15 EST ,
--- OUTSIDE RECORDS SUMMARY | 2023-03-05 09:51 | XMS RPT_ITS | CCD ---
Author Name Unknown Address [address] [place] [address] Organization [facility] Care Team Providers Care Independent Marketing Consultant Name Role Phone CATRINA BOWLES Attending Unavailable CATRINA BOWLES Attending Unavailable Encounters Encounter Date Encounter Type Care Provider Facility Start: 04-02-2019 End: 04-02-2019 Patient encounter procedure ACTRINA [facility]ang [facility] Start: 03-13-2019 End: 03-13-2019 Patient encounter procedure CATRINA [facility] Summary Purpose Family History No Family History Records Found Advance Directives No Advanced Directives Records Found Additional Source Comments INFORMATION SOURCE (unrecogn ized section and content) FOR RECORDS PERTAINING TO PATIENTS WHO ARE OR HAVE BEEN ENROLLED IN A CHEMICAL DEPENDENCY/SUBSTANCEABUSE PROGRAM, SOME INFORMATION MAY BE OMITTED. This clinical summary was aggregated from multiple sources. Caution should be exercised in using it in the provision of clinical care. This summary normalizes information from multiple sources, and as a consequence, information in this document may materially change the coding, format and clinical context of patient data. In addition, data may be omitted in some cases. CLINICAL DECISIONS SHOULD BE BASED ON THE PRIMARY CLINICAL RECORDS. [employer] [facility]. provides no warranty or guarantee of the accuracy or completeness of information in this document.
== END 2023-03-05 23:59 | disposition home or self-care (01) ==
LOC: OPBD 09:24
PROVIDERS: PCP Family Medicine; Referring Provider Family Medicine; Visit Provider Family Medicine
DX: Z12.31 Encounter for screening mammogram for malignant neoplasm of breast (principal); Z78.0 Asymptomatic menopausal state
CPT/HCPCS: 77063; 77067; 77080

== ENCOUNTER → 2023-04-10 | Outpatient (CLI) | payer OTHER, SELFPAY ==
--- NOTE | 2023-04-10 09:39 | RAD_ITS ---
STUDY: X-RAY - LEFT KNEE REASON FOR EXAM: Female, 62 years old. SWELLING OF KNEE JOINT TECHNIQUE: 4 view(s) of the knee. COMPARISON: None. FINDINGS: Normal visualized distal femur. Normal visualized proximal tibia and fibula. Normal proximal tibiofibular articulation. There is no demonstrated fracture. Normal medial femorotibial compartment. Normal lateral femorotibial compartment. Normal patellofemoral articulation. There is a soft tissue prominence in the suprapatellar region suggesting a small volume joint effusion. The soft tissue structures are unremarkable. RAD/Knee 4 or More Views IMPRESSION: Small effusion. No fracture or dislocation. Electronically Signed: Chava Merida MD at 22:56 EST ,
--- OUTSIDE RECORDS SUMMARY | 2023-04-10 11:15 | XMS RPT_ITS | CCD ---
Author Name Unknown Address [address] [place] [address] Organization [facility] Care Team Providers Care Chef German Name Role Phone CATRINA BOWLES Attending Unavailable CATRINA BOWLES Attending Unavailable Encounters Encounter Date Encounter Type Care Provider Facility Start: 04-02-2019 End: 04-02-2019 Patient encounter procedure CATRINA [facility] Start: 03-13-2019 End: 03-13-2019 [...] BE BASED ON THE PRIMARY CLINICAL RECORDS. [employer] [facility]. provides no warranty or guarantee of the accuracy or completeness of information in this document.
== END | disposition home or self-care (01) ==
LOC: MTLAB 09:38 → MTRAD 09:39
PROVIDERS: PCP Family Medicine; Referring Provider Family Medicine; Visit Provider Family Medicine
DX: M25.462 Effusion, left knee (principal)
CPT/HCPCS: 73564

== ENCOUNTER → 2023-10-09 | Outpatient (CLI) | payer OTHER, SELFPAY ==
[2023-10-09 12:31] LABS: Valproic Acid (Depakene) Level < 3 ug/mL (50-100)
== END | disposition home or self-care (01) ==
LOC: MFPLAB 09:08
PROVIDERS: PCP Family Medicine; Visit Provider Family Medicine
DX: G40.909 Epilepsy, unspecified, not intractable, without status epilepticus (principal)
CPT/HCPCS: 36415; 80164

== ENCOUNTER → 2024-10-16 | Outpatient (CLI) | payer OTHER, SELFPAY ==
--- NOTE | 2024-10-16 15:22 | RAD_ITS ---
PROCEDURE: KNEE 4 OR MORE VIEWS 10/16/2024 REASON FOR EXAM: KNEE PAIN TECHNIQUE: KNEE 4 OR MORE VIEWS Laterality: Right COMPARISON: None FINDINGS: Bones: No fracture. No suspicious bone lesion. Joints: Normal alignment. Mild degenerative changes. Effusion: No effusion. Soft tissues: Soft tissues are unremarkable. Other: RAD/Knee 4 or More Views IMPRESSION: NO EFFUSION ACUTE FRACTURE OR DISLOCATION. Reading Location: [id number]
== END | disposition home or self-care (01) ==
PROVIDERS: PCP Family Medicine; Referring Provider Family Medicine; Visit Provider Family Medicine
DX: M25.561 Pain in right knee (principal)
CPT/HCPCS: 73564

== ENCOUNTER → 2025-01-06 | Outpatient (CLI) | payer OTHER, SELFPAY ==
--- NOTE | 2025-01-06 12:15 | RAD_ITS ---
PROCEDURE: RIBS UNIL 2V NO CXR 01/06/2025 REASON FOR EXAM: RIB PAIN TECHNIQUE: Procedure Code: [id number] Modality: DX Procedure: RIBS UNIL 2V NO CXR COMPARISON: None FINDINGS: Two views of the right ribs. There is a minimally displaced fracture of the angle of the right 8th rib. There is no pneumothorax or effusion. Mineralization is normal. RAD/Ribs Unil 2V No CXR IMPRESSION: There is a minimally displaced fracture of the angle of the right 8th rib. Reading Location: [facility]
== END | disposition home or self-care (01) ==
LOC: RAD 12:01
PROVIDERS: PCP Family Medicine; Referring Provider Family Medicine; Visit Provider Family Medicine
DX: R07.89 Other chest pain (principal)
CPT/HCPCS: 71100